=== PATIENT | female | born 1970 | race Caucasian/White ===

== ENCOUNTER → 2017-11-11 11:22 | Outpatient (CLI) | payer BC, SELFPAY ==
[2017-11-11 11:41] LABS: Basophils % 0.7 % (0.1-2.0); Eosinophils # 0.1 K/mm3 (0.0-0.4); Eosinophils % 1.8 % (0.1-12.0); Hematocrit 47.3 % (37.0-47.0); Hemoglobin 15.6 g/dL (12.2-16.2); Lymphocytes # 1.8 K/mm3 (0.7-4.5); Lymphocytes % 31.9 K/mm3 (10-50); Mean Corpuscular Volume 90.8 fl (81-99); Mean Platelet Volume 8.1 fl (7.4-10.4); Monocytes # 0.4 K/mm3 (0.1-1.0); Monocytes % 7.5 % (1.7-9.3); Neutrophils # 3.3 K/mm3 (1.8-7.8); Neutrophils % 58.2 % (37.0-80.0); Platelet Count 248 K/mm3 (142-424); Red Blood Count 5.21 M/mm3 (4.20-5.40); Red Cell Distribution Width 11.9 % (11.5-17.5); White Blood Count 5.7 K/mm3 (4.8-10.8)
[2017-11-11 14:28] LABS: Alanine Aminotransferase 18 U/L (12-78); Albumin Level 3.8 gm/dL (3.4-5.0); Albumin/Globulin Ratio 1.1 (1.1-1.8); Alkaline Phosphatase 76 U/L (46-116); Anion Gap 14.2 mEq/L (5-15); Aspartate Amino Transferase 15 U/L (15-37); Blood Urea Nitrogen 15 mg/dL (7-18); Calcium 9.3 mg/dL (8.5-10.1); Carbon Dioxide 28 mmol/L (21.0-32.0); Chloride 104 mmol/L (98-107); Chol/HDL Ratio 2.1 (1-3.5); Cholesterol 189 mg/dL (140-200); Creatinine,Serum 0.84 mg/dL (0.55-1.02); Estimated Glomerular Filt Rate 72 ml/min (>60); GFR (African American) 87 ML/MIN (>60); Globulin 3.6 gm/dl (1.3-3.2); Glucose 83 mg/dL (74-106); HDL Cholesterol 92 mg/dL (29-89); LDL Cholesterol 87 mg/dL (0-130); Potassium 4.2 mmoL/L (3.5-5.1); Sodium 142 mmol/L (136-145); Thyroid Stimulating Hormone 1.48 uIU/ml (0.358-3.740); Total Protein,Serum 7.4 gm/dL (6.4-8.2); Triglycerides 52 mg/dL (30-200); VLDL Cholesterol 10 mg/dL (0-40)
[2017-11-13 18:48] LABS: FSH 81.3 mIU/mL (.); LH 48.5 mIU/mL (.)
== END ==
PROVIDERS: Visit Provider Nurse Practitioner Obstetrics & Gynecology
DX: Z01.419 Encounter for gynecological examination (general) (routine) without abnormal findings (principal); R53.82 Chronic fatigue, unspecified
CPT/HCPCS: 36415; 80053; 80061; 83001; 83002; 84443; 85025

== ENCOUNTER → 2018-03-20 10:41 | Outpatient (CLI) | payer BC, SELFPAY ==
--- NOTE | 2018-03-20 10:50 | US_ITS ---
US transvaginal HISTORY: Heavy dysfunctional uterine bleeding ITS.REASON: PELVIC MASS ORDERING PHYSICIAN: Luan Connell MD PATIENT AGE: 47 years Comparison: None FINDINGS: Uterus is bulky and retroverted. The uterus measures 8 x 5 x 9 cm with a combined endometrial thickness of 6 mm. Within the fundus of the retroverted uterus there is a 3 x 3 cm area of heterogeneous echogenicity consistent with fibroid. An additional 5 x 4.8 cm area of increased echogenicity is present in the right aspect of the body the uterus consistent with fibroid with some posterior acoustical shadowing. The left ovary has been removed. Right ovary measures 2.5 x 1.8 cm and has an unremarkable appearance. No cul-de-sac fluid evident. IMPRESSION: Bulky uterus is retroverted with fibroid involvement
== END ==
PROVIDERS: Family Provider Family Medicine; PCP Family Medicine; Visit Provider Family Medicine
DX: R19.00 Intra-abdominal and pelvic swelling, mass and lump, unspecified site (principal)
CPT/HCPCS: 76830

== ENCOUNTER → 2018-09-22 10:04 | Outpatient (CLI) | payer BC, SELFPAY ==
[2018-09-22 10:24] LABS: Basophils # 0.1 K/mm3 (0-0.2); Basophils % 0.8 % (0.1-2.0); Eosinophils # 0.1 K/mm3 (0.0-0.4); Eosinophils % 2.2 % (0.1-12.0); Hematocrit 47.2 % (37.0-47.0); Hemoglobin 15.4 g/dL (12.2-16.2); Lymphocytes # 2.5 K/mm3 (0.7-4.5); Lymphocytes % 37.1 % (10-50); Mean Corpuscular HGB Conc 32.6 g/dL (31.8-35.4); Mean Corpuscular Hemoglobin 29.7 pg (27.0-31.2); Mean Corpuscular Volume 91.2 fl (81-99); Mean Platelet Volume 7.8 fl (7.4-10.4); Monocytes # 0.4 K/mm3 (0.1-1.0); Monocytes % 6.6 % (1.7-9.3); Neutrophils # 3.6 K/mm3 (1.8-7.8); Neutrophils % 53.3 % (37.0-80.0); Platelet Count 288 K/mm3 (142-424); Red Blood Count 5.18 M/mm3 (4.20-5.40); Red Cell Distribution Width 12.7 % (11.5-17.5); White Blood Count 6.7 K/mm3 (4.8-10.8)
[2018-09-22 11:47] LABS: HCG Qualitative, Serum Negative (Negative)
[2018-09-22 11:49] LABS: Anion Gap 13.9 mEq/L (5-15); Blood Urea Nitrogen 13 mg/dL (7-18); Calcium 9.2 mg/dL (8.5-10.1); Carbon Dioxide 27 mmol/L (21.0-32.0); Chloride 101 mmol/L (98-107); Creatinine,Serum 0.94 mg/dL (0.55-1.02); Estimated Glomerular Filt Rate 63 ml/min (>60); GFR (African American) 77 ML/MIN (>60); Glucose 83 mg/dL (74-106); Potassium 3.9 mmoL/L (3.5-5.1); Sodium 138 mmol/L (136-145)
== END ==
PROVIDERS: Visit Provider Nurse Practitioner Obstetrics & Gynecology
DX: Z01.818 Encounter for other preprocedural examination (principal); N92.0 Excessive and frequent menstruation with regular cycle
CPT/HCPCS: 36415; 80048; 84703; 85025

== ENCOUNTER 2018-09-25 06:06 | Observation (INO) ==
--- NOTE | 2018-09-25 07:03 | Progress Note ---
[facility] Anesthesia Checklist - Structural Data Admitted From: Home Planned Operative Procedure/s: [facility] Consent for Planned Operative Procedure(s) Verified: Yes - Airway Assessment C-Spine Mobility Assessed: Yes TMJ Mobility Assessed: Yes Dentition: Good Dentition - Neurological Assessment Level of Consciousness: Awake, Alert, Appropriate - Anesthesia Plan Anesthesia Risk discussed: Yes Anesthesia Plan: Verified ASA Class: I [facility] History I have reviewed the patient's past medical history: Yes Medical History: Denies:: Anxiety, Cancer, Depression, Diabetes Mellitus Type 1, Diabetes Mellitus Type 2, Hyperlipidemia, Hypertension, Internal Pacemaker, MRSA, Seizures *Have you ever received a pneumonia vaccine?: No *Have you received a flu vaccine this season?: Yes Other Medical History: Denies: Blood Transfusion Reaction Laterality Cases: Bilateral: Other Other Surgeries: Yes: Dilation and Curettage. No: Pacemaker Amputation: No Fractures: No - *Social History Educational Level: Completed High School Smoking Status: Never smoker Alcohol Intake: never Substance Use Type: denies use *Occupational Status:: employed Housing: house Household Members: spouse *Travel in the last 8 weeks: None - Psychiatric History Expresses thoughts of harming self/others: None Suicide Plan Description: No Plan Pschychiatric History:: Denies:: Anxiety, Depression Family Hx:: No significant family history
--- NOTE | 2018-09-25 09:56 | Progress Note ---
[facility] Anesthesia Record Part I Intake, IV Amount: 2,500 Estimated blood loss (mL): 200 Urine output (mL): 200 Blood Pressure: 118/80 SaO2: 100 Pulse Rate: 87 Respiratory Rate: 12 Temperature: 97 F Patient is:: Awake, Stable Stable to PACU at:: 09:55
--- NOTE | 2018-09-25 09:57 | Progress Note ---
[facility] Anesthesia Record Part II Discharge Time: 10:25 Destination: floor PACU nurse assessment reviewed?: Yes Patient Condition:: Good Anesthesia Complications:: None Swallowing reflex intact?: Yes Cyanosis?: No
--- NOTE | 2018-09-25 10:02 | Operative Note ---
Date of procedure: 09/25/18 Pre-op Diagnosis:: Menorrhagia, pelvic pressure, fibroid uterus Post-op Diagnosis:: Menorrhagia, pelvic pressure, fibroid uterus Procedure performed:: Laparoscopically assisted vaginal hysterectomy, right salpingo-oophorectomy Surgeon:: David Whiteside MD Film Vault Supervisor(s):: Annmarie Deleon SECURITIES SUPERVISOR:: Krzysztof Canas Anesthesia: GETA Estimated blood loss (mL): 200 Clinical Note:: She is a 47-year-old lady who complains of heavy periods as well as a fibroid uterus. She has had a previous left salpingo-oophorectomy. After having discussed the risks and benefits we elected to perform a laparoscopic assisted vaginal hysterectomy and right salpingo-oophorectomy. She is menopausal. Operative findings:: She had a bulky uterus and there were at least 3 fibroids within the uterus. The largest of which was about 6 cm. There is a smaller 1 cm fibroid in the posterior cervix and another fibroid that was approximately 2 cm size within the uterus itself. Operative note:: She was taken to the operating room where general anesthesia was found be adequa te. She was prepped and draped in the normal sterile fashion in the semilithotomy position. A weighted speculum is placed in the vagina. An acorn retractor was then placed within the cervical canal. I changed gloves and injected approximately 10 cc of 0.5% ropivacaine around the umbilicus. I made a small incision within the umbilicus and inserted a Veress needle into the abdominal cavity. The abdominal cavity was then insufflated with carbon dioxide gas to a pressure of 20 mmHg. I then inserted an 11 mm trocar under direct vision. I injected through and through the pubic hairline, made a small incision here and inserted a 5 mm trocar under direct vision. I identified the inferior epigastric artery on the left side, went lateral to this and injected through and through. I made a small incision and inserted an 11 mm trocar under direct vision. This was similarly performed on the patient's right side. The left side had previously been removed so I took down the left round ligament and then the anterior peritoneum to the midline. I then took down the posterior peritoneum to the midline. I was able to identify the uterine arteries on the left side and I placed clips on these. I then used a harmonic scalpel adjacent to the cervix and took these down. I then turned my attention to the right side. I opened up the right round ligament with harmonic scalpel. I then opened up the anterior peritoneum to the midline joining up with the other side. The uterus was extremely bulky and this part of the surgery was tedious. I then took down the right tube and the right utero-ovarian ligament using harmonic scalpel. I elected to leave the ovary and tube in place at this time and then took down the posterior aspect of the broad ligament to the level of the uterosacral ligament on the right side. I was able to identify the uterine arteries on the right side and put hemoclips on these adjacent to the cervix. I then used Harmonic scalpel adjacent to the cervix on coagulation mode and took these down. I freed up the bladder anteriorly using both sharp and blunt dissection with the harmonic scalpel. After once again assuring hemostasis we then turned our attention to the vaginal portion of the procedure. She was placed in the lithotomy position and a weighted speculum is placed in the vagina. The anterior and posterior lip of the cervix were grasped with t enacula. I then injected 20 cc of 1% Xylocaine with epinephrine circumferentially about the cervix. I then circumscribed the cervix with knife. Using Majano scissors I opened up into the posterior cul-de-sac and placed a long weighted speculum here. I then clamped cut and suture-ligated and tagged the left uterosacral ligament. This is followed by the left cardinal ligament which was clamped cut and suture-ligated. I then clamped cut suture ligated and tagged the right uterosacral ligament. This was followed by the right cardinal ligament which was clamped cut and suture-ligated. I then grasped the mucosa and peritoneum anteriorly and using both sharp and blunt dissection dissected into the anterior cul-de-sac. I then placed a Jaun retractor into this defect. I then further clamped cut and suture-ligated on the patient's left and right sides. There was still tissue on either side. I then elected to move the fibroid from within the uterine cavity since it was too large to pass through the vagina. I grasped the cervix on either side at the 3:00 and 9 o'clock position with Bolden tenacula. I then bisected the cervix to the endometrium. Fibroid was then seen and using tenacula I grasped the fibroid and removed it in pieces. This took quite some time. I was careful not to go too deeply with a knife. After removing approximately half the fibroid this way I was able to pass the fundus of the uterus posteriorly through the vagina. There were 2 small pieces of tissue left and these were clamped cut and suture-ligated. Freed up the uterus completely. I then changed to a short weighted speculum and closed the posterior cuff using running 2-0 Vicryl suture in a locked fashion. I then placed a Dolan suture using 0 PDS. I passed the suture through the vagina and peritoneum and then passed it through the left perirectal fascia. I then plicated across the posterior peritoneum and passed through the right perirectal fascia. I then passed the suture through the peritoneum vagina. The suture was left to be tied at the end. I then grasped the anterior peritoneum using 2-0 PDS suture in a pursestring fashion I closed the peritoneum. I then closed the vagina mucosa using running 0 Vicryl suture in a locked fashion from left to right from anterior to posterior. The oDlan suture was then tied. A Grover catheter was placed in the bladder. Clear urine was seen to flow. I then changed gloves and turned my attention to the laparoscopic portion of the surgery. The abdominal cavity was then reinsufflated with carbon dioxide gas and I removed the right ovary and tube by first freeing it up on its infundibulopelvic ligament. I then placed 2 Endoloops on the infundibulopelvic ligament and cut away the tube and ovary. These were then placed within an Endo Catch bag and removed through an 11 mm port. After once again assuring hemostasis and rinsing the pelvis well, I then elected to apply Jeanine to the raw peritoneum on both the left and right sides. Once again hemostasis was assured. The secondary trochars were then removed under direct vision. The sites were hemostatic. The gas was let out of the abdomen and once again hemostasis was assured. The primary trocar and camera were removed together. No bowel was seen to follow. The 11 mm trocar sites were then closed deeply with 2-0 Vicryl suture in a [id number] fashion. The skin was closed with subcuticular 4-0 Monocryl suture. The 5 mm trocar site was closed with subcuticular 4-0 Monocryl suture. Sterile dressings were applied. She tolerated the procedure well and was taken to the recovery room in excellent condition. All sponge instrument and needle counts were correct. The estimated blood loss was approximately 200 cc. Condition: stable Disposition: PACU Specimens:: Uterus, fibroids, right tube and ovary Complications:: None
--- NOTE | 2018-09-25 11:12 | Pharmacy Consult Notes ---
[facility] Pharmacy VTE Monitoring - Patient Demographics Admission date: 09/25/18 Report Date: 09/25/18 Time: 11:12 Allergies/Adverse Reactions: Patient Allergies acetaminophen [From PERCOCET] Allergy (Unknown, Verified 09/25/18 06:23) MIGRANES iodine [IODINE] Allergy (Unknown, Verified 09/25/18 06:23) S-BLISTERING WELTS oxycodone [From PERCOCET] Allergy (Unknown, Verified 09/25/18 06:23) MIGRANES STERI STRIPS Allergy (Severe, Uncoded 06/06/18 15:31) BLISTERS SKIN Height: 1.65 m Weight: 63.503 kg - Prophylaxis VTE Prophylaxis Ordered?: Yes Types of VTE Prophylaxis: IPCS Thigh High Location of Applied Device: Bilateral Lower Extremeties - VTE Diagnosis Confirmed Treatment or plan recommended: Continue Current Treatment
[2018-09-25 16:15] LABS: Hematocrit 37.5 % (37.0-47.0); Hemoglobin 12.9 g/dL (12.2-16.2)
[2018-09-26 06:32] LABS: Basophils % 0.3 % (0.1-2.0); Eosinophils % 0.2 % (0.1-12.0); Hematocrit 33.1 % (37.0-47.0); Lymphocytes # 2.6 K/mm3 (0.7-4.5); Lymphocytes % 30.1 % (10-50); Mean Corpuscular HGB Conc 33.7 g/dL (31.8-35.4); Mean Corpuscular Hemoglobin 29.4 pg (27.0-31.2); Mean Corpuscular Volume 87.2 fl (81-99); Mean Platelet Volume 8.2 fl (7.4-10.4); Monocytes # 0.7 K/mm3 (0.1-1.0); Monocytes % 7.4 % (1.7-9.3); Neutrophils # 5.4 K/mm3 (1.8-7.8); Neutrophils % 61.9 % (37.0-80.0); Platelet Count 202 K/mm3 (142-424); Red Cell Distribution Width 12.7 % (11.5-17.5); White Blood Count 8.8 K/mm3 (4.8-10.8)
[2018-09-26 06:37] LABS: Anion Gap 12.1 mEq/L (5-15); Calcium 8.3 mg/dL (8.5-10.1); Potassium 4.1 mmoL/L (3.5-5.1)
[2018-09-26 07:09] LABS: Hemoglobin 11.3 g/dL (12.2-16.2)
--- NOTE | 2018-09-26 08:14 | Discharge Summary ---
General - General Admission date:: 09/25/18 Discharge date: 09/26/18 HPI HPI: She is a 47-year-old lady who complains of heavy periods as well as pelvic pressure. She had an ultrasound that showed a 4 cm fibroid. As result of that she was offered laparoscopic-assisted vaginal hysterectomy. She had a previous LSO and was offered RSO at the time of her surgery. Hospital Course Hospital Course: On September 25 she underwent a laparoscopic-assisted vaginal hysterectomy and right salpingo-nephrectomy. She had a large 6+ centimeter fibroid within the uterus. There is also 2 other smaller fibroids. She has done well postoperatively and has remained afebrile throughout her hospitalization. She is eating and drinking and ambulating. She is voiding well. She has not had a bowel movement. She denies any shortness of breath, chest pain or calf tenderness. Objective Vital signs: Temp Pulse Resp BP Pulse Ox 98.0 F 49 L 18 110/66 98 09/26/18 04:15 09/26/18 04:15 09/26/18 04:15 09/26/18 04:15 09/26/18 04:15 - *Routine Abdominal Exam Comments: Her incisions are clean and dry. - Detailed Eye Exam Eyelids: Left normal inspection Results Labs on day of discharge: Labs from last 24 hours 09/26/18 09/26/18 09/25/18 06:04 06:04 16:10 WBC 8.8 RBC 3.80 L Hgb 11.3 L D 12.9 Hct 33.1 L 37.5 MCV 87.2 MCH 29.4 MCHC 33.7 RDW 12.7 Plt Count 202 D MPV 8.2 Neut % (Auto) 61.9 Lymph % (Auto) 30.1 Harper % (Auto) 7.4 Eos % (Auto) 0.2 Baso % (Auto) 0.3 Neut # (Auto) 5.4 Lymph # (Auto) 2.6 Harper # (Auto) 0.7 Eos # (Auto) 0.0 Baso # (Auto) 0.0 Sodium 142 Potassium 4.1 Chloride 106 Carbon Dioxide 28 Anion Gap 12.1 BUN 8 Creatinine 0.79 Estimated Creat Clear 86 Estimated GFR 77 Est GFR ( Amer) 94 Glucose 88 Calcium 8.3 L Urine Color Urine Appearance Urine pH Ur Specific Hunter Urine Protein Urine Glucose (UA) Urine Ketones Urine Blood Urine Nitrate Urine Bilirubin Urine Urobilinogen Ur Leukocyte Esterase Urine WBC Ur Squamous Epith Cells Urine Bacteria 09/25/18 09:10 WBC RBC Hgb Hct MCV MCH MCHC RDW Plt Count MPV Neut % (Auto) Lymph % (Auto) Harper % (Auto) Eos % (Auto) Baso % (Auto) Neut # (Auto) Lymph # (Auto) Harper # (Auto) Eos # (Auto) Baso # (Auto) Sodium Potassium Chloride Carbon Dioxide Anion Gap BUN Creatinine Estimated Creat Clear Estimated GFR Est GFR ( Amer) Glucose Calcium Urine Color Yellow Urine Appearance Clear Urine pH 6.0 Ur Specific Hunter 1.015 Urine Protein Negative Urine Glucose (UA) Negative Urine Ketones Negative Urine Blood Trace-i Urine Nitrate Negative Urine Bilirubin Negative Urine Urobilinogen 0.2 Ur Leukocyte Esterase Negative Urine WBC 5-10 Ur Squamous Epith Cells 3-5 Urine Bacteria 1+ DS: Diagnosis - Discharge Diagnosis (1) Menorrhagia Status: Acute (2) Fibroid uterus Status: Acute Discharge Plan - Patient Discharge Instructions ACTIVITY: No heavy lifting DIET: continue same diet - Follow up Plan Disposition: Home, Self-Prison Medications: Home Medications Medication Instructions Recorded Confirmed Type Norethindrone-E.estradiol-Iron [Lo 1 tab PO DAILY 09/22/18 09/25/18 History Loestrin Fe] Hydrocodone/Acetaminophen [Lortab 1 tab PO Q6HP PRN #20 tab 09/26/18 Rx 7.5/325mg tablet] Prescriptions/Medication Reconciliation: New Hydrocodone/Acetaminophen [Lortab 7.5/325mg tablet] 1 tab PO Q6HP PRN #20 tab PRN Reason: Moderate To Severe Pain Discontinued Norethindrone-E.estradiol-Iron [Lo Loestrin Fe] 1 tab PO DAILY
== END 2018-09-26 09:45 | disposition home or self-care (01) ==
LOC: OR 06:06 → INTOOBSV 10:30 → OB 10:37
PROVIDERS: ADMIT Obstetrics & Gynecology; ATTEND Nurse Practitioner Obstetrics & Gynecology
CPT/HCPCS: 36415; 80048; 81001; 85014; 85018; 85025; 96372; 96374; G0378; J0131; J2405

== ENCOUNTER → 2018-12-05 12:21 | Outpatient (CLI) | payer BC, SELFPAY ==
--- NOTE | 2018-12-05 12:24 | XR_ITS ---
XR foot wt bearing RT 3V HISTORY: ITS.REASON: pain ORDERING PHYSICIAN: Donna Miranda DPM PATIENT AGE: 48 years COMPARISON: None FINDINGS: No fracture or dislocation. No lytic or blastic change. There is normal mineralization.. The joint spaces are well-preserved. No significant degenerative/arthritic changes. No erosive changes evident. IMPRESSION: Negative, no acute finding
--- NOTE | 2018-12-05 12:24 | XR_ITS ---
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 There are osteoarthritic changes of the first metatarsophalangeal joint which is increased since the previous exam. No other significant anomalies are evident. 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 Otherwise negative
== END ==
PROVIDERS: PCP Family Medicine; Visit Provider Podiatrist
DX: M79.672 Pain in left foot (principal); M79.671 Pain in right foot
CPT/HCPCS: 73630

== ENCOUNTER 2020-11-14 09:54 | Emergency (ER) | payer BC, SELFPAY ==
[2020-11-14 10:02] VITALS: BP 135/91; PULSE 90; RESP 16; TEMP 36.9; O2SAT 98; BMI 23.1
--- NOTE | 2020-11-14 10:17 | HMH.EDUTC ---
[facility] [place] Clinical Impression: Left lower lobe pneumonia Qualifiers: Pneumonia type: due to unspecified organism Qualified Code(s): J18.9 - Pneumonia, unspecified organism Disposition: Home, Self-Care Condition on Discharge: Good Instructions: DI for Pneumonia -- Adult Additional Instructions: COVID19 test is pending Prescriptions: levoFLOXacin [Levaquin 500mg tab] 500 mg PO DAILY 10 Days #10 tab Transmission Status: Pending to [id number] predniSONE [Prednisone 20mg Tab] 20 mg PO BID 5 Days #10 tab Transmission Status: Pending to [id number] Albuterol Sulfate [Proventil-HFA 90mcg/puff Inh] 2 puffs IH QIDP PRN 30 Days #1 inh PRN Reason: Wheezing Transmission Status: Pending to [facility] Referrals: Franciose Lowe MD [Primary Care Provider] - Forms: Work/School Release Time of Disposition: 10:52 Medical Decision Making - [place] Inquiry Pt receiving controlled substance: No Vital Signs: 11/14/20 10:02 Temperature 98.4 F Temperature Source Oral Pulse Rate [Right] 90 Respiratory Rate 16 Blood Pressure [Right Arm] 135/91 H Blood Pressure Mean [Right Arm] 105 Blood Pressure Source [Right Arm] Automatic Cuff Blood Pressure Position [Right Arm] Sitting 02 Sat by Pulse Oximetry 98 Oxygen Delivery Method Room Air Orders (Tests/Meds): ORDERS Category Date Time Status Covid-19 Nasal PCR ([facility]) Routine Lab 11/14/20 10:30 Received - Radiology Data #1 Image(s): Chest Image Reviewed: Yes I have reviewed radiologist's interpretation PROCEDURE: XR CHEST 2V CLINICAL HISTORY: cough COMPARISON: No exams were available for comparison FINDINGS: The cardiomediastinal silhouette and pulmonary vascularity are within normal limits. There is calcified granuloma in the right middle lobe. Atelectatic changes are present in the left lung base. The remaining lungs are clear. No acute bony abnormalities. IMPRESSION: Left lower lobe atelectasis [facility] [place] - General Stated complaint: headache, fever Time Seen by Provider: 11/14/20 10:17 Mode of Arrival: Ambulatory Source of Information: Patient Limitations: No Limitations Description of Symptoms (Recalled from Triage Doc. by RN): headache and cough HEENT Symptoms (Recalled from RN notes): Yes (headache, cough) Resp Symptoms (Recalled from RN notes): No Skin Symptoms (Recalled from RN notes): No MS Symptoms (Recalled from RN notes): No Functional Status (Recalled from RN notes): na - History of Present Illness Provider Complaint: Patient has had headache, cough, fever X [address] [facility] earlier this week - flu and strep were negative. Treated for sinusitis with Amoxicillin. She is still not feeling well. Still has fever. Stomach is upset but no vomiting or diarrhea. Hurts to take a deep breath. Cough is productive. Taste is off but hasn't lost taste or smell. Onset (ago): week(s) (1) Location: chest Consistency: constant Relieving factors: none Exacerbating factors: none Associated symptoms: cough, fever/chills, headaches, loss of appetite, nausea/vomiting Treatments prior to arrival: NSAID, other (Amoxil) - Related Data Previous Rx's Medication Instructions Recorded estradiol 2 mg tablet See Rx Instructions .ROUTE 10/27/20 .COMPLEX #90 tab amoxicillin 500 mg capsule 500 mg PO Q12H 10 Days #20 cap 11/11/20 Albuterol Sulfate [Proventil-HFA 2 puffs IH QIDP PRN 30 Days #1 inh 11/14/20 90mcg/puff Inh] levoFLOXacin [Levaquin 500mg 500 mg PO DAILY 10 Days #10 tab 11/14/20 tab] predniSONE [Prednisone 20mg 20 mg PO BID 5 Days #10 tab 11/14/20 Tab] Allergies Allergy/AdvReac Type Severity Reaction Status Date / Time sulfamethoxazole Allergy Mild Verified 11/11/20 11:26 [From Bactrim] trimethoprim [From Bactrim] Allergy Mild Verified 11/11/20 11:26 acetaminophen [From PERCOCET] Allergy Unknown MIGRANES Verified 11/11/20 11:26 io
--- NOTE | 2020-11-14 10:23 | XR_ITS ---
PROCEDURE: XR CHEST 2V CLINICAL HISTORY: cough COMPARISON: No exams were available for comparison FINDINGS: The cardiomediastinal silhouette and pulmonary vascularity are within normal limits. There is calcified granuloma in the right middle lobe. Atelectatic changes are present in the left lung base. The remaining lungs are clear. No acute bony abnormalities. IMPRESSION: Left lower lobe atelectasis Dictated by: Ian Whiting MD 11/14/2020 10:42 Ian Whiting MD in [place] 11/14/2020 10:43
[2020-11-14 11:02] VITALS: BP 132/80; PULSE 87; RESP 16; TEMP 36.8; O2SAT 98
== END 2020-11-14 11:04 | disposition home or self-care (01) ==
PROVIDERS: Emergency Provider Physician Assistant; PCP Family Medicine
DX: U07.1 COVID-19 (principal); J18.9 Pneumonia, unspecified organism
CPT/HCPCS: 71046; 99202; G0463; U0003

== ENCOUNTER → 2020-11-24 11:23 | Outpatient (CLI) | payer BC, SELFPAY ==
--- NOTE | 2020-11-24 11:36 | XR_ITS ---
PROCEDURE: XR CHEST 2V CLINICAL HISTORY: PNEUMONIA DUE TO CORONAVIRUS DISEASE 2018 COMPARISON: CR XR CHEST 2V from 11/14/2020 FINDINGS: The cardiomediastinal silhouette and pulmonary vascularity are within normal limits. Patchy areas of ground-glass infiltrate are noted in both lower lobes consistent with mild bilateral lower lobe pneumonia. These findings have progressed compared to the previous exam. There may be some patchy infiltrate in the right and left midlung zones as well. No obvious effusions No acute bony abnormalities. IMPRESSION: Patchy ground-glass attenuation bilaterally consistent with Covid19 pneumonia Dictated by: Ian Whiting MD 11/24/2020 12:05 Ian Whiting MD in [place] 11/24/2020 12:05
[2020-11-24 11:38] LABS: Basophils % 0.5 % (0.1-2.0); Hematocrit 45.5 % (37.0-47.0); Hemoglobin 15.1 g/dL (12.2-16.2); Lymphocytes % 28.7 % (10-50); Mean Corpuscular HGB Conc 33.2 g/dL (31.8-35.4); Mean Corpuscular Hemoglobin 28.2 pg (27.0-31.2); Monocytes # 0.6 K/mm3 (0.1-1.0); Monocytes % 8.8 % (1.7-9.3); Neutrophils # 4.3 K/mm3 (1.8-7.8); Neutrophils % 62.1 % (37.0-80.0); Platelet Count 401 K/mm3 (142-424); Red Blood Count 5.36 M/mm3 (4.20-5.40); Red Cell Distribution Width 12.3 % (11.5-17.5)
[2020-11-24 12:59] LABS: Alanine Aminotransferase 14 U/L (12-78); Albumin Level 3.9 g/dl (3.5-5.0); Albumin/Globulin Ratio 1.3 (1.1-1.8); Alkaline Phosphatase 79 U/L (38-126); Anion Gap 10.1 mEq/L (5-15); Aspartate Amino Transferase 23 U/L (14-36); Bilirubin,Total 0.8 mg/dl (0.2-1.3); Blood Urea Nitrogen 11 mg/dl (7-17); Calcium 9.1 mg/dl (8.4-10.2); Carbon Dioxide 28 mmol/L (22.0-30.0); Chloride 104 mmol/L (98-107); Estimated Glomerular Filt Rate 75 ml/min (>60); GFR (African American) 91 ML/MIN (>60); Glucose 62 mg/dl (74-100); Potassium 4.1 mmoL/L (3.5-5.1); Sodium 138 mmol/L (136-145); Total Protein,Serum 6.9 g/dl (6.3-8.2)
== END ==
LOC: LAB 11:23 → RAD 11:33
PROVIDERS: PCP Family Medicine; Visit Provider Physician Assistant
DX: J12.82 Pneumonia due to coronavirus disease 2019 (principal)
CPT/HCPCS: 36415; 71046; 80053; 85025

== ENCOUNTER → 2020-12-03 16:37 | Outpatient (CLI) | payer BC, SELFPAY | PROVIDERS: Visit Provider Nurse Practitioner Obstetrics & Gynecology | DX: U07.1 COVID-19 (principal) | CPT/HCPCS: U0003 ==

== ENCOUNTER → 2020-12-04 14:27 | Outpatient (CLI) | payer BC, SELFPAY ==
--- NOTE | 2020-12-04 14:38 | XR_ITS ---
PROCEDURE: XR CHEST PORTABLE CLINICAL HISTORY: PNUEMONIA DUE TO COVID COMPARISON: CR XR CHEST 2V from 11/14/2020 CR XR CHEST 2V from 11/24/2020 FINDINGS: The cardiomediastinal silhouette and pulmonary vascularity are within normal limits. Previously noted ill distinct bilateral mid and lower zone infiltrates demonstrate improvement. No lobar consolidation, pleural effusions or pneumothorax. Calcified granuloma in the right mid zone. No acute bony abnormalities. IMPRESSION: Bilateral mid and lower zone infiltrates demonstrate marginal improvement compared to the prior study. No focal consolidation. Dictated by: America Oseguera 12/04/2020 15:12 America Oseguera in [place] 12/04/2020 15:12
== END ==
PROVIDERS: PCP Physician Assistant; Visit Provider Physician Assistant
DX: J12.82 Pneumonia due to coronavirus disease 2019 (principal)
CPT/HCPCS: 71045

== ENCOUNTER 2022-01-08 11:04 | Emergency (ER) | payer BC, SELFPAY ==
--- NOTE | 2022-01-08 11:16 | HMH.EDUTC ---
[facility] Disposition Clinical Impression: Otitis media Qualifiers: Otitis media type: suppurative Chronicity: acute Laterality: bilateral Recurrence: non-recurrent Spontaneous tympanic membrane rupture: without spontaneous rupture Qualified Code(s): H66.003 - Acute suppurative otitis media without spontaneous rupture of ear drum, bilateral Pharyngitis Qualifiers: Pharyngitis/tonsillitis etiology: unspecified etiology Qualified Code(s): J02.9 - Acute pharyngitis, unspecified Disposition: Home, Self-Care Condition on Discharge: Good Instructions: Middle Ear Infection Additional Instructions: Drink plenty of fluids. Take tylenol or ibuprofen for pain or fever. Take the medications as directed. Follow up with your regular doctor. GO TO THE ER FOR ANY WORSENING SYMPTOMS Quarantine until you know the results of your covid-19 test. Notify your school or workplace of your results and follow their instructions regarding return to work/school. Prescriptions: Ondansetron [Zofran 4mg ODT] 4 mg PO Q8HP PRN #20 tab PRN Reason: Nausea [facility] Amoxicillin [Amoxicillin 500mg Tab] 500 mg PO TID 10 Days #30 tab Transmission Status: [facility] Benzonatate [Benzonatate 100mg cap] 100 mg PO TIDP PRN #30 cap PRN Reason: Cough Transmission Status: [facility] methylPREDNISolone [Medrol] 4 mg PO DIRECTED 6 Days #21 packet Transmission Status: [facility] Referrals: Ling Soria APRN [Primary Care Provider] - Forms: Work/School Release Time of Disposition: 11:51 Medical Decision Making - Medical Records Medical records reviewed: No: I reviewed the patient's medical records. - [place] Inquiry Pt receiving controlled substance: No Vital Signs: 01/08/22 11:24 01/08/22 11:56 Temperature 98.2 F 98.2 F Temperature Source Oral Pulse Rate 75 Pulse Rate [Left Radial] 75 Respiratory Rate 18 18 Blood Pressure 125/78 Blood Pressure [Right Arm] 125/78 Blood Pressure Mean [Right Arm] 93 02 Sat by Pulse Oximetry 96 - Lab Data Lab results reviewed: Yes: I reviewed the patient's lab results. Lab Results 01/08/22 11:22: Group A Strep Rapid Negative 01/08/22 11:47: Chlamy pneumoniae PCR Not detected, Adenovirus (PCR) Not detected, B. pertussis DNA (PCR) Not detected, Coronavirus OC43 (PCR) Not detected, Coronavirus HKU1 (PCR) Not detected, Coronavirus 229E (PCR) Not detected, SARS-CoV-2 (PCR) Detected A, Coronavirus NL63 (PCR) Not detected, Human Metapneumovir PCR Not detected, Influenza A (H1) PCR Not detected, Influ A (H1N1/09) PCR Not detected, Influenza A (H3) PCR Not detected, Influenza Type A (PCR) Not detected, Influenza Type B (PCR) Not detected, M. pneumoniae (PCR) Not detected, Parainfluenza 1 (PCR) Not detected, Parainfluenza 2 (PCR) Not detected, Parainfluenza 3 (PCR) Not detected, Parainfluenza 4 (PCR) Not detected, RSV (PCR) Not detected, Entero/Rhino (PCR) Not detected [facility] HPI - General Stated complaint: sore throat, bilateral ear pain Time Seen by Provider: 01/08/22 11:16 - History of Present Illness Provider Complaint: She states that for the past 2 days she has had a sore throat, bilateral ear pain, chills, fatigue and she has felt bad. - Related Data Home Medications Medication Instructions Recorded Confirmed amino acid-rice protein-mv with each PO BID g 06/29/21 min 24 gram-240 kcal/65 gram oral pwdr Previous Rx's Medication Instructions Recorded estradiol 2 mg tablet See Rx Instructions .ROUTE 10/19/21 .COMPLEX #90 tab peg 3350-electrolytes 236 240 ml PO Q10M #4000 ml 12/01/21 gram-22.74 gram-6.74 gram-5.86 gram solution Amoxicillin [Amoxicillin 500mg Tab] 500 mg PO TID 10 Days #30 tab 01/08/22 Benzonatate [Benzonatate 100mg 100 mg PO TIDP PRN #30 cap 01/08/22 cap] Ondansetron [Zofran 4mg ODT] 4 mg PO Q8HP PRN #20
[2022-01-08 11:24] VITALS: BP 125/78; PULSE 75; RESP 18; TEMP 36.8; O2SAT 96; BMI 25.0
[2022-01-08 11:33] LABS: Strep Scrn Group A (Rapid) Negative (Negative)
[2022-01-08 11:56] VITALS: BP 125/78; PULSE 75; RESP 18; TEMP 36.8
[2022-01-08 12:06] LABS: Adenovirus,PCR Not Detected (NotDetected); Bordetella Pertussis Not Detected (NotDetected); Chlamydophila Pneumoniae, PCR Not Detected (NotDetected); Coronavirus 229E Not Detected (NotDetected); Coronavirus NL63 Not Detected (NotDetected); Coronavirus OC43 Not Detected (NotDetected); Coronovirus HKU1,PCR Not Detected (NotDetected); Human Metapneumovirus Not Detected (NotDetected); Influenza A, PCR Not Detected (NotDetected); Influenza AH1, 2009 Not Detected (NotDetected); Influenza AH1, PCR Not Detected (NotDetected); Influenza AH3,PCR Not Detected (NotDetected); Influenza B, PCR Not Detected (NotDetected); Mycoplasma Pneumoniae, PCR Not Detected (NotDetected); Parainfluenza 1, PCR Not Detected (NotDetected); Parainfluenza 2, PCR Not Detected (NotDetected); Parainfluenza 3, PCR Not Detected (NotDetected); Parainfluenza 4, PCR Not Detected (NotDetected); Respiratory Syncytial Virus Not Detected (NotDetected); Rhinovirus/Enterovirus Not Detected (NotDetected)
[2022-01-08 17:01] LABS: Coronavirus 19, PCR Detected (NotDetected)
== END 2022-01-08 12:06 | disposition home or self-care (01) ==
PROVIDERS: Emergency Provider Nurse Practitioner Family; PCP Nurse Practitioner Family
DX: U07.1 COVID-19 (principal); H66.003 Acute suppurative otitis media without spontaneous rupture of ear drum, bilateral; H02.9 Unspecified disorder of eyelid; R53.82 Chronic fatigue, unspecified; Z79.52 Long term (current) use of systemic steroids; Z88.2 Allergy status to sulfonamides; Z88.6 Allergy status to analgesic agent; Z88.8 Allergy status to other drugs, medicaments and biological substances; Z85.89 Personal history of malignant neoplasm of other organs and systems; Z82.49 Family history of ischemic heart disease and other diseases of the circulatory system; Z83.3 Family history of diabetes mellitus
CPT/HCPCS: 87430; 87581; 87632; 87798; 99213; C9803; G0463; U0003; U0005

== ENCOUNTER 2022-01-13 12:46 | Emergency (ER) | payer BC, SELFPAY ==
[2022-01-13 13:01] VITALS: BP 138/87; PULSE 93; RESP 18; TEMP 36.9; O2SAT 96; BMI 25.0
--- NOTE | 2022-01-13 13:02 | HMH.EDUTC ---
[facility] Disposition Clinical Impression: COVID-19 Disposition: Home, Self-Care Condition on Discharge: Good Instructions: How to Instill Eye Drops, DI for Conjunctivitis, DI for COVID-19 (Suspected or Confirmed ), Preventing the Spread of Coronavirus Discharge Instructions Additional Instructions: Use the eye drops as directed. Follow up with your regular doctor. Follow up with an eye doctor. Drink plenty of fluids. Take tylenol or ibuprofen for pain or fever. Take the medications as directed. Stop the amoxicillin and start the azithromycin. Continue the other medications that you are on. Follow up with your regular doctor. GO TO THE ER FOR ANY WORSENING SYMPTOMS Prescriptions: Moxifloxacin HCl [Vigamox] 1 drp OP TID 7 Days #3 ml Transmission Status: Received by [facility] Azithromycin [Z-Gil 250mg Tab*] 250 mg PO UD DOSE PK #6 tab Transmission Status: Received by [facility] Referrals: Francoise Lowe MD [Primary Care Provider] - Time of Disposition: 13:37 Medical Decision Making - Medical Records Medical records reviewed: No: I reviewed the patient's medical records. - [place] Inquiry Pt receiving controlled substance: No Vital Signs: 01/13/22 13:01 01/13/22 13:38 Temperature 98.5 F 98.5 F Temperature Source Oral Pulse Rate 93 H Pulse Rate [Left Radial] 93 H Respiratory Rate 18 18 Blood Pressure 138/87 Blood Pressure [Right Arm] 138/87 Blood Pressure Mean [Right Arm] 104 02 Sat by Pulse Oximetry 96 - Lab Data Lab results reviewed: Yes: I reviewed the patient's lab results. [facility] HPI - General Stated complaint: headache, cough, red eyes Time Seen by Provider: 01/13/22 13:02 - History of Present Illness Provider Complaint: She is back today with continued sinus congestion, bilateral eye matting, and feeling bad. She was seen here 3 days ago and she tested positive for covid-19. She denies any shortness of breath and chest congestion. She states that her chest congestion has seemed to get some better. She denies any fever for the past 24 hours. - Related Data Home Medications Medication Instructions Recorded Confirmed amino acid-rice protein-mv with each PO BID g 06/29/21 min 24 gram-240 kcal/65 gram oral pwdr Previous Rx's Medication Instructions Recorded estradiol 2 mg tablet See Rx Instructions .ROUTE 10/19/21 .COMPLEX #90 tab peg 3350-electrolytes 236 240 ml PO Q10M #4000 ml 12/01/21 gram-22.74 gram-6.74 gram-5.86 gram solution Amoxicillin [Amoxicillin 500mg Tab] 500 mg PO TID 10 Days #30 tab 01/08/22 Benzonatate [Benzonatate 100mg 100 mg PO TIDP PRN #30 cap 01/08/22 cap] Ondansetron [Zofran 4mg ODT] 4 mg PO Q8HP PRN #20 tab 01/08/22 methylPREDNISolone [Medrol] 4 mg PO DIRECTED 6 Days #21 01/08/22 packet Azithromycin [Z-Gil 250mg Tab*] 250 mg PO UD DOSE PK #6 tab 01/13/22 Moxifloxacin HCl [Vigamox] 1 drp OP TID 7 Days #3 ml 01/13/22 Allergies Allergy/AdvReac Type Severity Reaction Status Date / Time sulfamethoxazole Allergy Mild Verified 01/13/22 13:04 [From Bactrim] trimethoprim [From Bactrim] Allergy Mild Verified 01/13/22 13:04 acetaminophen [From PERCOCET] Allergy Unknown MIGRANES Verified 01/13/22 13:04 iodine [IODINE] Allergy Unknown S-BLISTERING Verified 01/13/22 13:04 WELTS oxycodone [From PERCOCET] Allergy Unknown MIGRANES Verified 01/13/22 13:04 STERI STRIPS Allergy Severe BLISTERS Uncoded 12/03/20 15:52 SKIN H History - Hepatitis A Screen Attestation statement:: This patient has been screened for Hepatitis A risk factors. I have reviewed the patient's past medical history: Yes Medical History: Reports:: Cancer Denies:: Anxiety, Depression, Diabetes Mellitus Type 1, Diabetes Mellitus Type 2, Hyperlipidemia, Hypertension, Internal Pacemaker, MRSA, Seizures Other Medical History: Denies: Blood Transfusion Reaction Laterality Cases: Bilateral:
[2022-01-13 13:38] VITALS: BP 138/87; PULSE 93; RESP 18; TEMP 36.9
== END 2022-01-13 13:42 | disposition home or self-care (01) ==
PROVIDERS: Emergency Provider Nurse Practitioner Family; PCP Family Medicine
DX: U07.1 COVID-19 (principal); R51.9 Headache, unspecified; R05.9 Cough, unspecified
CPT/HCPCS: 99212; G0463

== ENCOUNTER → 2022-03-08 08:49 | Outpatient (CLI) | payer BC, SELFPAY | PROVIDERS: PCP Family Medicine; Visit Provider Surgery | DX: Z01.812 Encounter for preprocedural laboratory examination (principal); Z20.822 Contact with and (suspected) exposure to COVID-19; Z12.11 Encounter for screening for malignant neoplasm of colon | CPT/HCPCS: C9803; U0003; U0005 ==

== ENCOUNTER 2022-03-09 08:37 | Day surgery (SDC) | payer BC, SELFPAY ==
[2022-03-08 09:39] VITALS: BMI 24.1
[2022-03-09 08:53] VITALS: BP 171/72; PULSE 62; RESP 20; TEMP 37.1; O2SAT 98
--- NOTE | 2022-03-09 09:09 | P.PN_ITS ---
[facility] Anesthesia Checklist - Patient Identification Patient Identification: Arm Band - Structural Data Admitted From: Home Planned Operative Procedure/s: colonoscopy Consent for Planned Operative Procedure(s) Verified: Yes Verified Documents: Surgical Consent, History and Physical - NPO Status Verified Time NPO: 00:00 - Additional verifications Anesthesia Reactions: No Hx Blood Transfusions: No Blood Transfusion Reaction: No - Airway Assessment C-Spine Mobility Assessed: Yes (mp2) TMJ Mobility Assessed: Yes Dentition: Good Dentition - Neurological Assessment Level of Consciousness: Awake, Alert - Anesthesia Plan Anesthesia Risk discussed: Yes Anesthesia Plan: Verified ASA Class: I Anesthesia Type: MAC [facility] History I have reviewed the patient's past medical history: Yes Medical History: Denies:: Anxiety, Cancer, Depression, Diabetes Mellitus Type 1, Diabetes Mellitus Type 2, Hyperlipidemia, Hypertension, Internal Pacemaker, MRSA, Seizures *Have you ever received a pneumonia vaccine?: No *Have you received a flu vaccine this season?: No Other Medical History: Denies: Blood Transfusion Reaction Anesthesia experience/problems:: nac Laterality Cases: Bilateral: Other Other Surgeries: Yes: Appendectomy, Cancer Surgery (Cancerous spot removed from her nose ), Cholecystectomy, Dilation and Curettage, Hysterectomy-Total, Skin Cancer Excision, Tubal Ligation. No: Pacemaker Amputation: No Fractures: No - *Social History Last grade of school completed: Some college Smoking Status: Never smoker Alcohol Intake: current Alcohol Intake Frequency:: holidays/special occasions only Substance Use Type: denies use *Occupational Status:: employed Housing: house Household Members: spouse *Travel in the last 8 weeks: None - Psychiatric History Pschychiatric History:: Denies:: Anxiety, Depression Family Hx:: Diabetes, Hypertension, Stroke, Other
[2022-03-09 09:11] VITALS: O2SAT 97
--- NOTE | 2022-03-09 09:41 | HMH.SCOPE ---
- Procedure: Date: 03/09/22 Patient Date of :: 1970 Procedure Performed:: Colonoscopy with polypectomy by means other than snare Indications:: Screening Performing Provider:: Weston Flood MD Referring Provider:: . Sedation:: Monitored anesthesia care Procedure:: After informed consent was obtained the patient was taken to the endoscopy suite. Sedation ensued after the patient was transferred to the left lateral decubitus position. Pulse, blood pressure, and oxygen saturation were monitored throughout the procedure. Digital rectal exam revealed no significant abnormality. The colonoscope was placed in position. The entire colon was evaluated. The colonoscope was carefully removed and the patient was transferred to recovery in stable condition. Please see findings and specimens below for detail. Findings:: Bowel preparation relatively fair Scattered sigmoid diverticulosis Fairly significant lack of relaxation Proximal right colon polyp Specimens:: Proximal right colon polyp (cold biopsy forceps) Recommendations:: Timing of repeat colonoscopy is pending pathology but will likely be around 3-5 years. Complications:: No immediate Estimated blood obtained (mL): 1
[2022-03-09 09:42] VITALS: BP 104/56; PULSE 60; RESP 16; TEMP 36.3; O2SAT 100
[2022-03-09 09:52] VITALS: BP 109/76; PULSE 57; RESP 16; O2SAT 99
[2022-03-09 10:02] VITALS: BP 103/69; PULSE 57; RESP 16; O2SAT 100
[2022-03-09 10:12] VITALS: BP 106/62; PULSE 59; RESP 16; TEMP 36.2; O2SAT 100
== END 2022-03-09 10:12 | disposition home or self-care (01) ==
LOC: OUTP 08:38
PROVIDERS: PCP Nurse Practitioner Family; Visit Provider Surgery
PROC: 0DJD8ZZ Inspection of Lower Intestinal Tract, Via Natural or Artificial Opening Endoscopic (ICD-10-PCS; CPT 45380; principal; 2022-03-09 09:30)
DX: Z12.11 Encounter for screening for malignant neoplasm of colon (principal); K63.5 Polyp of colon; Z79.899 Other long term (current) drug therapy
CPT/HCPCS: 45380; J2704

== ENCOUNTER → 2022-06-24 09:46 | Outpatient (CLI) | payer BC, SELFPAY ==
--- NOTE | 2022-06-24 09:50 | MM_ITS ---
PROCEDURE INFORMATION: Exam: MG Bilateral Screening 3D Mammography Exam date and time: 06/24/2022 9:41 AM Age: 51 years old Clinical indication: Screening. Her maternal cousin had breast cancer. TECHNIQUE: Imaging protocol: Bilateral Screening tomosynthesis and 2D mammography including computer-aided detection (CAD) when performed. COMPARISON: 1. MG DMSB DIG MAMM-SCREEN AMANDA 03/21/2015 8:38 AM 2. MG DMSB DIG MAMM-SCREEN AMANDA 11/21/2013 3:55 PM 3. MG DMSB DIGITAL MAMM-SCREEN BILATERAL 08/22/2012 9:03 AM 4. MG DMSB DIGITAL MAMM-SCREEN BILATERAL 07/15/2011 9:18 AM FINDINGS: MAMMOGRAPHY: Breast composition: The breasts are heterogeneously dense, which may obscure small masses. Mass: None. Architectural distortion: None. Calcifications: No suspicious calcifications. Asymmetric density: None. Skin thickening: None. Axillary adenopathy: None. IMPRESSION: No mammographic evidence of malignancy. Annual screening is recommended unless otherwise clinically indicated. ASSESSMENT: BI-RADS Category 1: Negative
== END ==
PROVIDERS: PCP Nurse Practitioner Family; Visit Provider Nurse Practitioner Obstetrics & Gynecology
DX: Z12.31 Encounter for screening mammogram for malignant neoplasm of breast (principal)
CPT/HCPCS: 77063; 77067

== ENCOUNTER 2022-07-08 10:52 | Emergency (ER) | payer BC, SELFPAY ==
[2022-07-08 11:35] VITALS: BP 103/67; PULSE 82; RESP 17; TEMP 36.7; O2SAT 96; BMI 27.1
[2022-07-08 11:44] LABS: Adenovirus,PCR Not Detected (NotDetected); Bordetella Pertussis Not Detected (NotDetected); Chlamydophila Pneumoniae, PCR Not Detected (NotDetected); Coronavirus 19, PCR Not Detected (NotDetected); Coronavirus 229E Not Detected (NotDetected); Coronavirus NL63 Not Detected (NotDetected); Coronavirus OC43 Not Detected (NotDetected); Coronovirus HKU1,PCR Not Detected (NotDetected); Human Metapneumovirus Not Detected (NotDetected); Influenza A, PCR Not Detected (NotDetected); Influenza AH1, 2009 Not Detected (NotDetected); Influenza AH1, PCR Not Detected (NotDetected); Influenza AH3,PCR Not Detected (NotDetected); Influenza B, PCR Not Detected (NotDetected); Mycoplasma Pneumoniae, PCR Not Detected (NotDetected); Parainfluenza 1, PCR Not Detected (NotDetected); Parainfluenza 2, PCR Not Detected (NotDetected); Parainfluenza 3, PCR Not Detected (NotDetected); Parainfluenza 4, PCR Not Detected (NotDetected); Rhinovirus/Enterovirus Not Detected (NotDetected)
--- NOTE | 2022-07-08 11:51 | EXP.UTC ---
Discharge Plan Disposition Patient Disposition: Home, Self-Care Condition: Good Prescriptions Prescriptions: New benzonatate [benzonatate] 100 mg capsule 100 mg PO TIDP PRN (Reason: Cough) Qty: 30 0RF methylprednisolone 4 mg Tablets,Dose Pack 4 mg PO DIRECTED Qty: 21 0RF cefdinir 300 mg capsule 300 mg PO BID Qty: 20 0RF No Action estradiol 2 MG tablet 2 mg PO DAILY Rx Instructions: TAKE 1 TABLET BY MOUTH EVERY DAY Referrals Follow up/Referrals: Celina Jordan APRN [Primary Care Provider] - See instructions Activity Restrictions/Add. Instructions Additional Instructions/Restrictions: Drink plenty of fluids. Take tylenol or ibuprofen for pain or fever. Take the medications as directed. Follow up with your regular doctor. GO TO THE ER FOR ANY WORSENING SYMPTOMS Don't start the oral steroids until tomorrow, since you had the shot here today. Clinical Impressions Clinical Impression: Acute bronchitis, Acute viral syndrome Stand Alone Forms Stand Alone Forms: Work/School Release Instructions Patient Instructions: DI for Respiratory Syncytial Virus -- Adults, DI for Acute Bronchitis Discharge ED Provider: Eulogio Wade [facility] General Stated complaint: RSV Exposure, chest congestion, SOA Mode of Arrival: Ambulatory Source of Information: Patient Limitations: No Limitations Time Seen by Provider: 07/08/22 11:51 Description of Symptoms (Recalled from Triage Doc. by RN): PATIENT C/O COUGH, RUNNY NOSE, SOA AND HURTS TO BREATH X 1 WEEK. RECENTLY EXPOSED TO RSV HEENT Symptoms (Recalled from RN notes): Yes Resp Symptoms (Recalled from RN notes): Yes Skin Symptoms (Recalled from RN notes): No MS Symptoms (Recalled from RN notes): No Functional Status (Recalled from RN notes): WNL History of Present Illness Provider Complaint: she states that for the past 2 days she has had cough, chest congestion, low grade fever and malaise. She has been exposed to rsv in her home. Related Data Home Medications Medication Instructions Recorded Confirmed estradiol 2 mg tablet 2 mg PO DAILY HORMONE 03/05/22 07/08/22 Previous Rx's Medication Instructions Recorded benzonatate 100 mg capsule 100 mg PO TIDP PRN Cough #30 caps 07/08/22 cefdinir 300 mg capsule 300 mg PO BID #20 caps 07/08/22 methylprednisolone 4 mg tablets in 4 mg PO DIRECTED #21 tabs 07/08/22 a dose pack Allergies Allergy/AdvReac Type Severity Reaction Status Date / Time sulfamethoxazole Allergy Mild Verified 03/17/22 14:15 [From Bactrim] trimethoprim [From Bactrim] Allergy Mild Verified 03/17/22 14:15 acetaminophen [From PERCOCET] Allergy Unknown MIGRANES Verified 03/17/22 14:15 iodine [IODINE] Allergy Unknown S-BLISTERING Verified 03/17/22 14:15 WELTS oxycodone [From PERCOCET] Allergy Unknown MIGRANES Verified 03/17/22 14:15 STERI STRIPS Allergy Severe BLISTERS Uncoded 03/17/22 14:15 SKIN Worker's Comp Is this a Worker's Comp case?: No [facility] Disclaimer: The information contained in this section may have been updated after the patient was seen, as this information can be updated by other users. Medical History Skin cancer Tubular adenoma of colon Surgical History History of appendectomy History of cholecystectomy History of colonoscopy History of hysterectomy History of tubal ligation Social History Smoking Status: Never smoker alcohol intake: current substance use type: denies use current occupational status: employed Travel in the last 8 weeks: None household members: spouse housing: house current occupation: 3M current occupational exposures/hazards: Yes caffeine: Yes ROS Obtained: Yes All systems reviewed & no additional complaints except as documented Constitutional Constitutio
[2022-07-08 12:47] VITALS: BP 103/67; PULSE 82; RESP 17; TEMP 36.7; O2SAT 96
[2022-07-08 20:28] LABS: Respiratory Syncytial Virus Detected (NotDetected)
== END 2022-07-08 12:50 | disposition home or self-care (01) ==
PROVIDERS: Emergency Provider Nurse Practitioner Family; PCP Nurse Practitioner Family
DX: J20.5 Acute bronchitis due to respiratory syncytial virus (principal)
CPT/HCPCS: 87581; 87632; 87798; 99212; C9803; G0463; J0696; U0003; U0005

== ENCOUNTER 2022-08-25 13:13 | Emergency (ER) | payer BC, SELFPAY ==
[2022-08-25 13:15] VITALS: BP 147/92; PULSE 70; RESP 20; TEMP 36.7; O2SAT 96; BMI 26.2
--- NOTE | 2022-08-25 13:15 | EXP.UTC ---
Discharge Plan Disposition Patient Disposition: Home, Self-Care Condition: Good Prescriptions Prescriptions: New ofloxacin 0.3 % drops See Rx Instructions .ROUTE .COMPLEX Qty: 5 0RF Rx Instructions: put 2 drps into affected eye every 2 h x 2 days, then 1 drp 4 times/day days 3-7 No Action estradiol 2 MG tablet 2 mg PO DAILY Rx Instructions: TAKE 1 TABLET BY MOUTH EVERY DAY Referrals Follow up/Referrals: Francoise Lowe MD [Primary Care Provider] - See instructions Activity Restrictions/Add. Instructions Additional Instructions/Restrictions: Use the eye drops as directed. Strict hand washing in the house hold, because conjunctivitis is very contagious. Follow up with your regular doctor. GO TO THE ER FOR ANY WORSENING SYMPTOMS OR CONCERNS Clinical Impressions Clinical Impression: Conjunctivitis Stand Alone Forms Stand Alone Forms: Work/School Release Instructions Patient Instructions: How to Instill Eye Drops, DI for Conjunctivitis Discharge ED Provider: Eulogio Wade [facility] General Stated complaint: LT eye redness w/drainage Time Seen by Provider: 08/25/22 13:15 History of Present Illness Provider Complaint: She states that for the past 1 day she has had left eye irritation and discharge. It was matted together this am with yellowish drainage. She denies any injury or foreign body. She states that her vision in the eye is essentially normal. Related Data Home Medications Medication Instructions Recorded Confirmed estradiol 2 mg tablet 2 mg PO DAILY HORMONE 03/05/22 07/08/22 Previous Rx's Medication Instructions Recorded ofloxacin 0.3 % eye drops See Rx Instructions ophthalmic 08/25/22 (eye) .COMPLEX #5 mL Allergies Allergy/AdvReac Type Severity Reaction Status Date / Time sulfamethoxazole Allergy Mild Verified 08/25/22 13:27 [From Bactrim] trimethoprim [From Bactrim] Allergy Mild Verified 08/25/22 13:27 acetaminophen [From PERCOCET] Allergy Unknown MIGRANES Verified 08/25/22 13:27 iodine [IODINE] Allergy Unknown S-BLISTERING Verified 08/25/22 13:27 WELTS oxycodone [From PERCOCET] Allergy Unknown MIGRANES Verified 08/25/22 13:27 STERI STRIPS Allergy Severe BLISTERS Uncoded 03/17/22 14:15 SKIN [facility] Disclaimer: The information contained in this section may have been updated after the patient was seen, as this information can be updated by other users. Medical History Skin cancer Tubular adenoma of colon Surgical History History of appendectomy History of cholecystectomy History of colonoscopy History of hysterectomy History of tubal ligation Social History Smoking Status: Never smoker alcohol intake: current substance use type: denies use current occupational status: employed Travel in the last 8 weeks: None household members: spouse housing: house current occupation: 3M current occupational exposures/hazards: Yes caffeine: Yes ROS Obtained: Yes All systems reviewed & no additional complaints except as documented Constitutional Constitutional: Denies chills and Denies fever(s) Eyes Eyes: Reports eye discharge ENT Ears, Nose, Mouth, and Throat: Denies dizziness, Denies otalgia and Denies sore throat Cardiovascular Cardiovascular: Denies chest pain Respiratory Respiratory: Denies shortness of breath, Denies chest congestion, Denies cough, Denies stridor and Denies wheezing Gastrointestinal Gastrointestingal: Denies nausea or vomiting Musculoskeletal Musculoskeletal: Reports system reviewed and no additional complaints, except as documented and Denies arthralgias Integumentary/Breasts Skin/Breast: Denies rash Neurologic Neurologic: Denies dizziness and Denies paresthesias Allergic/Immunologic Allergic/Immunologic: Denies whee
[2022-08-25 14:51] VITALS: BP 147/92; PULSE 70; RESP 20; TEMP 36.7; O2SAT 96
== END 2022-08-25 14:30 | disposition home or self-care (01) ==
PROVIDERS: Emergency Provider Nurse Practitioner Family; PCP Family Medicine
DX: H10.9 Unspecified conjunctivitis (principal)
CPT/HCPCS: 99212; 99213; G0463

== ENCOUNTER → 2022-09-21 16:33 | Outpatient (CLI) | payer BC, SELFPAY | PROVIDERS: Visit Provider Podiatrist | DX: B35.1 Tinea unguium (principal) | CPT/HCPCS: 87220 ==

== ENCOUNTER → 2022-11-29 10:09 | Outpatient (CLI) | payer BC, SELFPAY ==
[2022-11-29 11:34] LABS: Basophils # 0.1 K/mm3 (0-0.2); Basophils % 0.7 % (0.1-2.0); Eosinophils # 0.2 K/mm3 (0.0-0.4); Eosinophils % 1.8 % (0.1-12.0); Hematocrit 44.3 % (37.0-47.0); Hemoglobin 14.4 g/dL (12.2-16.2); Lymphocytes # 2.9 K/mm3 (0.7-4.5); Lymphocytes % 32.3 % (10-50); Mean Corpuscular HGB Conc 32.5 g/dL (31.8-35.4); Mean Corpuscular Hemoglobin 29.1 pg (27.0-31.2); Mean Corpuscular Volume 89.5 fl (81-99); Mean Platelet Volume 8.2 fl (7.4-10.4); Monocytes # 0.7 K/mm3 (0.1-1.0); Monocytes % 8.1 % (1.7-9.3); Neutrophils # 5.2 K/mm3 (1.8-7.8); Neutrophils % 57.1 % (37.0-80.0); Platelet Count 330 K/mm3 (142-424); Red Blood Count 4.96 M/mm3 (4.20-5.40); White Blood Count 9.1 K/mm3 (4.8-10.8)
[2022-11-29 11:43] LABS: Alanine Aminotransferase 18 U/L (12-78); Albumin Level 3.8 g/dl (3.5-5.0); Albumin/Globulin Ratio 1.4 (1.1-1.8); Alkaline Phosphatase 79 U/L (38-126); Aspartate Amino Transferase 26 U/L (14-36); Blood Urea Nitrogen 11 mg/dl (7-17); Calcium 8.7 mg/dl (8.4-10.2); Carbon Dioxide 28 mmol/L (22.0-30.0); Chloride 101 mmol/L (98-107); Cholesterol 199 mg/dl (140-200); Estimated Glomerular Filt Rate 87 ml/min (>60); GFR (African American) 106 ML/MIN (>60); Globulin 2.8 g/dL (1.3-3.2); Glucose 80 mg/dl (74-100); HDL Cholesterol 100 mg/dl (40-60); Sodium 138 mmol/L (136-145); Total Protein,Serum 6.6 g/dl (6.3-8.2); Triglycerides 112 mg/dl (30-150); VLDL Cholesterol 22 mg/dL (0-40)
[2022-11-29 11:55] LABS: Direct LDL Cholesterol 87.59 mg/dL (100-129)
[2022-11-29 12:02] LABS: 25-OH Vitamin D, Total 26.5 ng/mL (30-100); Free Thyroxine Index 3.8 ug/dL (5.93-13.13); T4 (Thyroxine) 14.8 ug/dl (5.53-11.0); Triiodothryronine (T3) Uptake 26 % (23.5-40.5)
[2022-11-29 12:15] LABS: Thyroid Stimulating Hormone 1.36 uIU/mL (0.465-4.68)
[2022-11-29 12:33] LABS: Vitamin B12 235 pg/mL (239-931)
== END ==
PROVIDERS: PCP Family Medicine; Visit Provider Nurse Practitioner Obstetrics & Gynecology
DX: R53.83 Other fatigue (principal); E55.9 Vitamin D deficiency, unspecified; Z79.899 Other long term (current) drug therapy
CPT/HCPCS: 36415; 80053; 80061; 82306; 82607; 84436; 84443; 84479; 85025

== ENCOUNTER → 2023-02-02 09:34 | Outpatient (CLI) | payer BC, SELFPAY ==
--- NOTE | 2023-02-02 09:35 | MR_ITS ---
FINAL REPORT CLINICAL HISTORY: foot pain heel pain since july 2022 COMPARISON: None FINDINGS: Multiplanar MR imaging of the right foot was performed without contrast. No fractures are visualized, however there is mild bone marrow edema in the inferior aspect of the calcaneal tuberosity. Mild degenerative change is present. The flexor and extensor tendons are intact. No ligamentous injury is identified. The musculature is intact. There is mild posterior plantar fasciitis with adjacent soft tissue edema. There is a 3 mm osteochondral lesion in the medial talar dome. IMPRESSION: Mild posterior plantar fasciitis with adjacent soft tissue edema. Mild degenerative change with a 3 mm osteochondral lesion of the medial talar dome. Mild bone marrow edema inferior aspect of the calcaneal tuberosity. Reviewed, Interpreted and Dictated by Michael Crocker III, MD Transcribed by Bridgette Hennessy Authenticated and [facility]
== END ==
LOC: RAD 09:35
PROVIDERS: PCP Family Medicine; Visit Provider Podiatrist
DX: M79.671 Pain in right foot (principal); M72.2 Plantar fascial fibromatosis
CPT/HCPCS: 73718

== ENCOUNTER 2023-07-13 09:21 | Emergency (ER) | payer BC, SELFPAY ==
[2023-07-13 10:05] VITALS: BP 125/60; PULSE 62; RESP 18; TEMP 37; O2SAT 97; BMI 27.6
--- NOTE | 2023-07-13 10:11 | EXP.UTC ---
Discharge Plan Disposition Patient Disposition: Home, Self-Care Condition: Good Prescriptions Prescriptions: No Action celecoxib 200 mg capsule 200 mg PO DAILY mecobalamin (vitamin B12) 1,000 mcg tablet,chewable 1,000 mcg PO DAILY cholecalciferol (vitamin D3) 125 mcg (5,000 unit) tablet 125 mcg PO DAILY multivitamin [Multiple Vitamins] Tablet 1 tab PO DAILY fluticasone propionate 50 mcg/actuation spray,suspension intranasal Patient Comments: SPRAY 1 SPRAY INTO EACH NOSTRIL EVERY DAY trazodone 150 mg tablet 150 mg PO DAILY estradiol 2 mg tablet See Rx Instructions .ROUTE .COMPLEX Qty: 90 3RF Dose Instruction: TAKE 1 TABLET BY MOUTH EVERY DAY Rx Instructions: TAKE 1 TABLET BY MOUTH EVERY DAY Referrals Follow up/Referrals: Jonathon Hull MD [Primary Care Provider] - See instructions Activity Restrictions/Add. Instructions Additional Instructions/Restrictions: Use the eye drops as directed. Strict hand washing in the house hold, because conjunctivitis is very contagious. Follow up with your regular doctor. GO TO THE ER FOR ANY WORSENING SYMPTOMS OR CONCERNS Clinical Impressions Clinical Impression: Acute conjunctivitis, right eye Stand Alone Forms Stand Alone Forms: Work/School Release Instructions Patient Instructions: How to Instill Eye Drops, Conjunctivitis, DI for Conjunctivitis Discharge ED Provider: Eulogio Wade [facility] General Stated complaint: redness in eyes, itching Time Seen by Provider: 07/13/23 10:11 History of Present Illness Provider Complaint: She states that she has had right eye irritation, redness with yellowish discharge for the past 2 days. She denies any injury or foreign body. Related Data Home Medications Medication Instructions Recorded Confirmed trazodone 150 mg tablet 150 mg PO DAILY 01/18/23 07/13/23 celecoxib 200 mg capsule 200 mg PO DAILY 05/24/23 07/13/23 cholecalciferol (vitamin D3) 125 125 mcg PO DAILY 05/24/23 07/13/23 mcg (5,000 unit) tablet fluticasone propionate 50 intranasal 05/24/23 05/24/23 mcg/actuation nasal spray,suspension mecobalamin (vitamin B12) 1,000 1,000 mcg PO DAILY 05/24/23 07/13/23 mcg chewable tablet multivitamin (Multiple Vitamins 1 tab PO DAILY 05/24/23 07/13/23 tablet) Previous Rx's Medication Instructions Recorded estradiol 2 mg tablet See Rx Instructions .Route 10/18/22 .COMPLEX #90 tabs Allergies Allergy/AdvReac Type Severity Reaction Status Date / Time adhesive Allergy Severe Blister Verified 07/13/23 10:21 sulfamethoxazole Allergy Mild Verified 07/13/23 10:21 [From Bactrim] trimethoprim [From Bactrim] Allergy Mild Verified 07/13/23 10:21 acetaminophen [From PERCOCET] Allergy Unknown MIGRANES Verified 07/13/23 10:21 iodine [IODINE] Allergy Unknown S-BLISTERING Verified 07/13/23 10:21 WELTS oxycodone [From PERCOCET] Allergy Unknown MIGRANES Verified 07/13/23 10:21 STERI STRIPS Allergy Severe BLISTERS Uncoded 02/22/23 09:38 SKIN PFSH PFSH Disclaimer: The information contained in this section may have been updated after the patient was seen, as this information can be updated by other users. Medical History Skin cancer Tubular adenoma of colon Surgical History History of appendectomy History of cholecystectomy History of colonoscopy History of hysterectomy History of tubal ligation Social History Smoking Status: Never smoker alcohol intake: current substance use type: denies use current occupational status: employed Travel in the last 8 weeks: None household members: spouse housing: house current occupation: 3M current occupational exposures/hazards: Yes caffeine: Yes ROS Obtained: Yes All systems reviewed & no
[2023-07-13 10:31] VITALS: BP 125/60; PULSE 62; RESP 18; TEMP 37; O2SAT 97
== END 2023-07-13 10:31 | disposition home or self-care (01) ==
PROVIDERS: Emergency Provider Nurse Practitioner Family; PCP Family Medicine
DX: H10.31 Unspecified acute conjunctivitis, right eye (principal)
CPT/HCPCS: 99212; 99213; G0463

== ENCOUNTER 2023-08-03 10:54 | Outpatient (CLI) | payer BC, SELFPAY ==
--- NOTE | 2023-08-03 10:58 | MM_ITS ---
PROCEDURE INFORMATION: Exam: MG Bilateral Screening 3D Mammography Exam date and time: 08/03/2023 10:44 AM Age: 52 years old Clinical indication: Screening examination. Maternal cousin had breast cancer. TECHNIQUE: Imaging protocol: Bilateral Screening tomosynthesis and 2D mammography including computer-aided detection (CAD) when performed. COMPARISON: 1. MG MM DIG SCREENING MAMM BI W/CAD 06/24/2022 9:41 AM 2. MG DMSB DIG MAMM-SCREEN AMANDA 03/21/2015 8:38 AM 3. MG DMSB DIG MAMM-SCREEN AMANDA 11/21/2013 3:55 PM 4. MG DMSB DIGITAL MAMM-SCREEN BILATERAL 08/22/2012 9:03 AM FINDINGS: MAMMOGRAPHY: Breast composition: The breasts are heterogeneously dense, which may obscure small masses. Mass: None. Architectural distortion: None. Calcifications: No suspicious calcifications. Asymmetric density: No developing asymmetry. Skin thickening: None. Axillary adenopathy: None. IMPRESSION: No mammographic evidence of malignancy. Annual screening is recommended unless otherwise clinically indicated. ASSESSMENT: BI-RADS Category 1: Negative
== END 2023-08-03 23:59 ==
LOC: RAD 10:54
PROVIDERS: PCP Family Medicine; Visit Provider Family Medicine
DX: Z12.31 Encounter for screening mammogram for malignant neoplasm of breast (principal)
CPT/HCPCS: 77063; 77067

== ENCOUNTER 2024-02-21 09:21 | Emergency (ER) | payer BC, SELFPAY ==
[2024-02-21 09:30] VITALS: BP 134/81; PULSE 74; RESP 20; TEMP 36.8; O2SAT 98; BMI 27.8
--- NOTE | 2024-02-21 09:50 | EXP.UTC ---
Discharge Plan Disposition Patient Disposition: Home, Self-Care Condition: Good Prescriptions Prescriptions: New dicyclomine 10 mg capsule 10 mg PO TID PRN (Reason: abdominal pain/cramping) Qty: 20 0RF No Action celecoxib 200 mg capsule 200 mg PO DAILY Patient Comments: TAKE 1 CAPSULE BY MOUTH EVERY DAY WITH FOOD FOR 90 DAYS famotidine 40 mg tablet 40 mg PO DAILY omeprazole 40 mg capsule,delayed release(DR/EC) 40 mg PO AM Patient Comments: TAKE 1 CAPSULE BY MOUTH EVERY DAY 30 MINUTES BEFORE MORNING MEAL FOR 90 DAYS trazodone 150 mg tablet 150 mg PO HS Patient Comments: TAKE 1 TABLET BY MOUTH AT BEDTIME estradiol 2 mg tablet 2 mg PO DAILY Patient Comments: TAKE 1 TABLET BY MOUTH EVERY DAY diclofenac sodium 50 mg tablet,delayed release (DR/EC) 50 mg PO DAILY Patient Comments: TAKE 1 TABLET BY MOUTH TWICE A DAY NEEDED fluticasone propionate 50 mcg/actuation spray,suspension 1 spray INTRANASAL DAILY Patient Comments: SPRAY 1 SPRAY INTO EACH NOSTRIL EVERY DAY levocetirizine 5 mg tablet 5 mg PO DAILY Patient Comments: TAKE 1 TABLET BY MOUTH EVERY DAY Referrals Follow up/Referrals: Jonathon Hull MD [Primary Care Provider] - See instructions Activity Restrictions/Add. Instructions Additional Instructions/Restrictions: Drink extra fluids with and between meals. If you have difficulty drinking, try very small amounts of water or suck on ice chips. ? Avoid fruit juices, as these do not replace minerals and can actually increase diarrhea. ? Children and adults can use sports drinks to replenish electrolytes. Younger children and infants should use products formulated for children, like oral rehydration solutions. ? Eat food in small amounts and let your stomach recover. ? Get lots of rest. You may feel tired or weak. ? No greasy or fried foods for the next 24-48 hours BRAT diet Bananas Rice Apples and Carey ? Make sure to drink plenty of liquids ? Return if needed ? Straight to ER if any life threatening symptoms ? You was given an outpatient order for diarrhea panel, please collect specimen and bring back to outpatient lab then call back to the [facility] or follow up with family doctor for results ? Follow up with family doctor in the next 48-72 hours if no improvement or any worsening of symptoms Clinical Impressions Clinical Impression: Diarrhea Stand Alone Forms Stand Alone Forms: Work/School Release Instructions Patient Instructions: Diarrhea, Dicyclomine Print Language Print Language: Pakistani Discharge ED Provider: Claritza Aranda [facility] HPI General Stated complaint: abd pain, diarrhea Mode of Arrival: Ambulatory Source of Information: Patient Limitations: No Limitations Time Seen by Provider: 02/21/24 09:50 Description of Symptoms (Recalled from Triage Doc. by RN): PATIENT C/O STOMACH CRAMPS, DIARRHEA, AND HEADACHE X 2 DAYS HEENT Symptoms (Recalled from RN notes): Yes Resp Symptoms (Recalled from RN notes): No Skin Symptoms (Recalled from RN notes): No MS Symptoms (Recalled from RN notes): No Functional Status (Recalled from RN notes): WNL History of Present Illness Provider Complaint: Patient states that for the last couple of days she has been having headache, diarrhea and cramping States that she has been going to the bathroom multiple times and it is liquid like State today her stomach was still cramping and diarrhea so she came in to get checked Related Data Home Medications ?Medication ?Instructions ?Recorded ?Confirmed celecoxib 200 mg capsule 200 mg PO DAILY 02/21/24 02/21/24 diclofenac sodium 50 mg 50 mg PO DAILY 02/21/24 02/21/24 tablet,delayed release estradiol 2 mg tablet 2 mg PO DAILY 02/21/24 02/21/24 famotidine 40 mg tablet 40 mg PO DAILY 02/21/24 02/21/24 fluticasone propionate 50 1 spray intranasal DAILY 02/21/24 02/21/24 mcg/actuation nasal spray,suspension levocetirizine 5 mg tablet 5 mg PO DAILY 02/21/24 02/21/24 omeprazole 40 mg capsule,delayed 40 mg PO AM 02/21/24 02/21/24 release trazodone 150 mg tablet 150 mg PO HS 02/21/24 02/21/24 Previous Rx's ?Medication ?Instructions ?Recorded dicyclomine 10 mg capsule 10 mg PO TID PRN abdominal 02/21/24 pain/cramping #20 caps Allergies Allergy/AdvReac Type Severity Reaction Status Date / Time adhesive Allergy Severe Blister Verified 08/31/23 15:01 sulfamethoxazole Allergy Mild Verified 08/31/23 15:01 [From Bactrim] trimethoprim [From Bactrim] Allergy Mild Verified 08/31/23 15:01 acetaminophen [From PERCOCET] Allergy Unknown MIGRANES Verified 08/31/23 15:01 iodine [IODINE] Allergy Unknown S-BLISTERING Verified 08/31/23 15:01 WELTS oxycodone [From PERCOCET] Allergy Unknown MIGRANES Verified 08/31/23 15:01 STERI STRIPS Allergy Severe BLISTERS Uncoded 02/22/23 09:38 SKIN Worker's Comp Is this a Worker's Comp case?: No [facility] Disclaimer: The information contained in this section may have been updated after the patient was seen, as this information can be updated by other users. Medical History Skin cancer Tubular adenoma of colon Surgical History History of appendectomy History of cholecystectomy History of colonoscopy History of hysterectomy History of tubal ligation Social History Smoking Status: Never smoker alcohol intake: current alcohol intake frequency: holidays/special occasions only substance use type: denies use current occupational status: employed Travel in the last 8 weeks: None household members: spouse housing: house current occupation: 3M current occupational exposures/hazards: Yes caffeine: Yes ROS Obtained: Yes All systems reviewed & no additional complaints except as documented and Yes Systems reviewed as appropriate & no additional complaints except as documented Constitutional Constitutional: Reports system reviewed and no additional complaints, except as documented and Reports as per HPI ENT Ears, Nose, Mouth, and Throat: Reports system reviewed and no additional complaints, except as documented and Reports as per HPI Cardiovascular Cardiovascular: Reports system reviewed and no additional complaints, except as documented and Reports as per HPI Gastrointestinal Gastrointestingal: Reports system reviewed and no additional complaints, except as documented, as per HPI, cramping and diarrhea; Denies nausea or vomiting Physical Exam General General appearance: alert and in no apparent distress ENT ENT exam: Present mucous membranes moist Respiratory Respiratory exam: Present normal lung sounds bilaterally; Absent respiratory distress or wheezes Cardiovascular Cardiovascular exam: Present regular rate, normal rhythm and normal heart sounds Abdominal Exam Abdominal exam: Present soft and normal bowel sounds; Absent distention Neurological Exam Neurological exam: Present alert, oriented X3 and normal gait Medical Decision Making [place] Inquiry Pt receiving controlled substance: No [place] was queried for this patient: No Vital Signs: 02/21/24 09:30 Temperature 98.2 F Temperature Source Oral Pulse Rate [Left Brachial] 74 Respiratory Rate 20 Blood Pressure [Left Arm] 134/81 Blood Pressure Mean [Left Arm] 98 Blood Pressure Source [Left Arm] Automatic Cuff Blood Pressure Position [Left Arm] Sitting 02 Sat by Pulse Oximetry 98 Oxygen Delivery Method Room Air
[2024-02-21 09:55] VITALS: BP 134/81; PULSE 74; RESP 20; TEMP 36.8; O2SAT 98
== END 2024-02-21 09:58 | disposition home or self-care (01) ==
PROVIDERS: Emergency Provider Nurse Practitioner; PCP Family Medicine
DX: R19.7 Diarrhea, unspecified (principal); R25.2 Cramp and spasm; R51.9 Headache, unspecified
CPT/HCPCS: 99212; 99214; G0463

== ENCOUNTER 2025-02-01 16:11 | Outpatient (CLI) | payer BC, SELFPAY ==
--- OUTSIDE RECORDS SUMMARY | 2024-02-10 05:30 | XMS_ITS ---
Author Organization [facility] Address [address] [place] [id number] Care Team Providers Care Color Worker Name Role Phone Brandi Lowe Primary Care Provider [phone] Jonathon Hull Unavailable [phone] Allergies Allergen (clinical drug ingredient) Drug/Non Drug Allergy documented on EMR Reaction Allergy Type Onset Date Status sulfamethoxazole / trimethoprim Bactrim DS itching, rash Drug Allergy Active Iodine rash, burn Drug Allergy Active Steri-Strip Compound Benzoin itching Drug Allergy Active Results Component Value Reference Range Notes P-Comprehensive Metabolic Pa lucero (CMP) Reviewed date:02/13/2024 09:36:14 AM Interpretation: Normal Performing Lab: Notes/Report: Test performed by [facility] [address] [place] [address] , [address], [place] [address] Bayron Dumont MD, [employer] CLIA: [id number] Sodium 138 135-145 mmol/L Potassium 4.1 3.5-5.3 mmol/L Chloride 102 97-108 mmol/L CO2 25 22-32 mmol/L Glucose 85 65-99 mg/dL BUN 14 6-20 mg/dL Creatinine 0.89 0.50-1.00 mg/dL Calcium 9.4 8.6-10.4 mg/dL eGFR by Creatinine 76 >59 mL/min/1.73m2 Protein 6.7 6.0-8.3 g/dL Albumin 4.1 3.5-5.3 g/dL Alkaline Phosphatase 100 35-121 IU/L ALT (SGPT) 20 <5-47 IU/L AST (SGOT) 21 <5-40 IU/L Bilirubin, Total 0.4 <0.2-1.2 mg/dL A/G Ratio 1.6 1.1-2.5 mg/dL P-Lipid Panel Reviewed date:02/13/2024 09:36:14 AM Interpretation:chol 262, trigs 245, non-198, ldl 149 Performing Lab: Notes/Report: Test performed by [facility], [address] , [address], [place] [address] Bayron Dumont MD, [employer] CLIA: [id number] Cholesterol 262 <200 mg/dL Triglycerides 245 <150 mg/dL HDL Cholesterol 64 >39 mg/dL Cholesterol / HDL Ratio 4.09 0.00-4.44 Ratio Non-HDL Cholesterol 198 <130 mg/dL LDL Cholesterol (Calculation) 149 <130 mg/dL LDL Cholesterol Levels* Less than 100 mg/dL Optimal 100 to 129 mg/dL Near Optimal/ Above Optimal 130 to 159 mg/dL Borderline High 160 to 189 mg/dL High 190 mg/dL and above Very High * Categories as recommended by the 2004 ATPIII guidelines LDL/HDL Ratio 2.3 <3.3 Ratio LDL Cholesterol Patient History Test Date: 02/10/2024 LDL Results: 149 Units: mg/dL % Change: - P-Vitamin D 25-Hydroxy Reviewed date:02/13/2024 09:36:14 AM Interpretation: Normal Performing Lab: Notes/Report: Test performed by [facility] [address] [place] [address] , [address], [place] [address] Bayron Dumont MD, [employer] CLIA: [id number] Vitamin D 25-Hydroxy 94.9 30.0-100.0 ng/mL Interpretation of Vitamin D 25 OH: < 20 ng/mL - Deficiency 20 - 29 ng/mL - Insufficiency 30 - 100 ng/mL - Sufficiency > 100 ng/mL - Super-therapeutic- toxicity may occur above this level. Clinical correlation required. REASON FOR VISIT 5 months w fasting labs Medications Medication SIG (Take, Route, Frequency, Duration) Notes Start Date End Date Status traZODone HCl 150 MG 1 tablet at bedtime Orally At Bed Time Active Fluticasone Propionate 50 MCG/ACT SPRAY 1 SPRAY INTO EACH NOSTRIL EVERY DAY; Duration: 90 Active Diclofenac Sodium 50 MG 1 tablet as need ed Orally Twice a day 01/02/2024 Active Xyzal Allergy 24HR 5 MG 1 tablet in the evening Orally Once a day; Duration: 30 day(s) Active Estradiol 2 MG 1 tab(s) orally once a day; Duration: 30 day(s) Active Omeprazole 40 MG 1 capsule 30 minutes before morning meal Orally Once a day; Duration: 90 days 02/10/2024 Active Vital Signs Weight 171 lbs 02/10/2024 Blood pressure systolic 114 mm Hg 02/10/20 24 Blood pressure diastolic 70 mm Hg 024 Heart Rate 56 /min 02/10/2024 Height 65 in 02/10/2024 BMI 28.45 kg/m2 02/10/2024 Encounters Encounter Location Date Provider Diagnosis [facility] [address] [place], [place] [id number] 02/10/2024 Jonathon Hancock Polyarthralgia M25.5 0 ; Dyspepsia R10.13 ; Primary insomnia F51.01 ; Vitamin D deficiency E55.9 and Well adult exam Z00.00 Assessments Encounter Date Diagnosis (ICD Code) Assessment Notes Treatment Notes Treatment Clinical Notes Section Notes 02/10/2024 Polyarthralgia (ICD-10 - M25.50) Discussed using Duloxetine in the future if symptoms persist 02/10/2024 Dyspepsia (ICD-10 - R10.13) 02/10/2024 Primary insomnia (ICD-10 - F51.01) 02/10/2024 Vitamin D deficiency (ICD-10 - E55.9) 02/10/2024 Well adult exam (ICD-10 - Z00.00) Plan Of Treatment Medication Medication Name Sig Start Date Stop Date Notes traZODone HCl 150 MG 1 tablet at bedtime Orally At Bed Time Diclofenac Sodium 50 MG 1 tablet as need ed Orally Twice a day 01/02/2024 Famotidine 40 MG 1 tablet at bedtime Orally Once a day Omeprazole 40 MG 1 capsule 30 minutes before morning meal Orally Once a day; Duration: 90 days 02/10/2024 Treatment Notes Assessment Notes Polyarthralgia Discussed using Dulo xetine in the future if symptoms persist Next Appt Details Follow Up: 6 Months, Reason: Provider Name:Jonathon Clay , 07/31/2025 09:45:00 AM, [address] [facility], [address], [place], [place], [id number], Progress Notes * NADIYA MARCOSKATELYNB:1970 ( 54 yo F)Acc No.[id number]:02/10/2024 Progress Notes Patient: HELLEN WOMACK Provider: Terese Hull M.D. :1970 A ge:53 Y S ex:Female Date:02/10/2024 Address:[address] [place] [address] [place], [id number] Pcp:Brandi Lowe Subjective: * Chief Complaints: * 1 . 5 months w fasting labs. * HPI: P sychology: 53 year old female presents with c/o sleep disturbances P t here to f/u, states she is doing well on Trazodone and does not have any concerns. * ROS: D ERMATOLOGY: no R mey. n o H yash. G ASTROENTEROLOGY: no N ausea. n o V omiting. U ROLOGY: no D ifficulty urinating. n o B lood in urine. * Medical History: H PV 1987, Osteoarthritis, RAQUEL positive 2022, s/p Rheumatology evaluation, Allergic rhinitis, Colon polyps, Plantar fasciitis, s/p podiatry evaluation, Vitamin D deficiency. * Surgical History: L T Big Toe Bone Spur , btl , Appendectomy , Cholecystectomy , Widom Teeth Extracted , [facility]one Biopsy 1987, Tubal Ligation , Ovary Removal 11/2007, RT L5, S1 01/19/2013, Ablasion 01/2014, LT Toe Joint Replacement 03/01/2016, Gum Graft 03/2017, colonoscopy 02/2022. * Hospitalization/Major Diagno stic Procedure: C OVID Pneumonia- [facility] 11/14/2020. * Family History: F ather: , complications of diabetes, heart. M other: alive. 2 daughter(s) - healthy. . * Social History: C URRENT TOBACCO USE S moking Status: Patient does NOT smoke. C affeine: yes, frequency:coffee, pop. Home smoke detector use: no. Marital Status: . Past smoking status: no. * Medications: T aking Xyzal Allergy 24HR 5 MG Tablet 1 tablet in the evening Orally Once a day , Taking Estradiol 2 MG Tablet 1 tab(s) orally once a day , Taking Fluticasone Propionate 50 MCG/ACT Suspension SPRAY 1 SPRAY INTO EACH NOSTRIL EVERY DAY , Taking traZODone HCl 150 MG Tablet 1 tablet at bedtime Orally At Bed Time , Taking Diclofenac Sodium 50 MG Tablet Delayed Release 1 tablet as needed Orally Twice a day , Taking Famotidine 40 MG Tablet 1 tablet at bedtime Orally Once a day , Discontinued Vitamin B-12 1000 MCG Tablet 1 tab(s) orally once a day , Discontinued Vitamin D3 50 MCG (1999 UT) Capsule 2 cap(s) orally once a day , Medication List reviewed and reconciled with the patient * Allergies: I odine: rash, burn, Steri-Strip Compound Benzoin: itching, Bactrim DS: itching, rash. Objective: * Vitals: W t:171, Temp:97.8, BP:114/70, HR:56, Nurse:cari, Ht: 65, BMI:28.45. * Examination: G eneral Examination: General Appearance: N AD. H eart: R SR. L ungs:?clear to auscultation. E xtremities: n o leg edema. Assessment: * Assessment: 1. P olyarthralgia - M25.50 (Primary) 2 . D yspepsia - R10.13 ?3. P rimary insomnia - F51.01 4 . V itamin D deficiency - E55.9 ? 5 . W ell adult exam - Z00.00 Plan: * Treatment: 2. D yspepsia Stop Famotidine Tablet, 40 MG, 1 tablet at bedtime, Orally, Once a day; S tart Omeprazole Capsule Delayed Release, 40 MG, 1 capsule 30 minutes before morning meal, Orally, Once a day, 90 days, 90, Refills 1. 3. P rimary insomnia Continue traZODone HCl Tablet, 150 MG, 1 tablet at bedtime, Orally, At Bed Time. 4. V itamin D deficiency L AB: P-Vitamin D 25-Hydroxy (Collection Date & Time - 02/10/2024 08:45 AM) N ormal Value Reference Range V itamin D 25-Hydroxy 94.9 30.0-100.0 - ng/mL * Kyung Sidhu 02/13/2024 9:36: 11 AM >See phone encounter 5.?Well adult exam?LAB: P-Comprehensive Metabolic Panel (CMP) (Collection Date & Time - 02/10/2024 08:45 AM)?Normal* Value Reference Range A /G Ratio 1.6 1.1-2.5 - mg/dL * A lbumin 4.1 3.5-5.3 - g/dL * A lkaline Phosphatase 100 35-121 - IU/L * A LT (SGPT) 20 <5-47 - IU/L * A ST (SGOT) 21 <5-40 - IU/L * B ilirubin, Total 0.4 <0.2-1.2 - mg/dL * B UN 14 6-20 - mg/dL * C alcium 9.4 8.6-10.4 - mg/dL * C hloride 102 97-108 - mmol/L * C O2 25 22-32 - mmol/L * C reatinine 0.89 0.50-1.00 - mg/dL * G lucose 85 65-99 - mg/dL * P otassium 4.1 3.5-5.3 - mmol/L * S odium 138 135-145 - mmol/L * P rotein 6.7 6.0-8.3 - g/dL * e GFR by Creatinine 76 >59 - mL/min/1.73m2 * TheaKyung 02/13/2024 9:36: 11 AM >See phone encounter ?LAB: P-Lipid Panel (Collection Date & Time - 02/10/2024 08:45 AM)?chol 262, trigs 245, non-198, ldl 149* Value Reference Range C holesterol / HDL Ratio 4.09 0.00-4.44 - Ratio * C holesterol 262 H <200 - mg/dL * H DL Cholesterol 64 >39 - mg/dL * L DL Cholesterol (Calculation) 149 H <130 - mg/d L * L DL/HDL Ratio 2.3 <3.3 - Ratio * N on-HDL Cholesterol 198 H <130 - mg/dL * T riglycerides 245 H <150 - mg/dL * Kyung Sidhu 02/13/2024 9:36: 11 AM >See phone encounter * Follow Up: 6 Months * Images: Billing Information: * Visit Code: 38652 Office Visit, Est Pt., Level 4. * Procedure Codes: * Electronic signature of Yulisa Hull MD on 02/01/2025 at 04:13 PM EDT Sign off status: Pending * Provider: Terese Hull M.D. Date: 02/10/2024 Generated for Belia bran/Yoly/eTrashidsmitting on: 02/01/2025 04:13 PM EDT History and Physical Notes * HPI (History of Present Illness) Category Sub-Category Detail Notes Category Not es Psychology sleep disturbances Pt here to f/ u, states she is doing well on Trazodone and does not have any concerns Examination Category Sub-Category Detail Notes Category Not es General Examination Heart: RSR Lungs: clear to auscultatio n Extremities: no leg edema General Appearance: NAD
--- OUTSIDE RECORDS SUMMARY | 2024-08-13 11:45 | XMS_ITS ---
Author Organization [facility] Address [address] [facility] [address] [place] [id number] Care Team Providers Care Religious Education Coordinator Name Role Phone Brandi Lowe Primary Care Provider Jonathon Hull Unavailable [phone] Allergies Allergen (clinical drug ingredient) Drug/Non Drug Allergy documented on EMR Reaction Allergy Type Onset Date Status sulfamethoxazole / trimethoprim Bactrim DS itching, rash Drug Allergy Active Iodine rash, burn Drug Allergy Active Steri-Strip Compound Benzoin itching Drug Allergy Active REASON FOR VISIT 6 month f/u Medications Medication SIG (Take, Route, Frequency, Duration) Notes Start Date End Date Status Fluticasone Propionate 50 MCG/ACT SPRAY 1 SPRAY INTO EACH NOSTRIL EVERY DAY; Duration: 90 Active Estradiol 2 MG 1 tab(s) orally once a day; Duration: 30 day(s) Active Xyzal Allergy 24HR 5 MG 1 tablet in the evening Orally Once a day; Duration: 30 day(s) Active Omeprazole 40 MG 1 capsule 30 minutes before morning meal Orally Once a day 02/10/2024 Active traZODone HCl 150 MG 1 tablet at bedtime Orally At Bed Time Not-Taking Celecoxib 200 MG 1 capsule with food Orally Once a day; Duration: 90 days 08/13/2024 Active Vital Signs Weight 171.7 lbs 08/13/2024 Blood pressure systolic 116 mm Hg 08/13/19 25 Blood pressure diastolic 80 mm Hg 025 Heart Rate 76 /min 08/13/2024 Height 65 in 08/13/2024 BMI 28.57 kg/m2 08/13/2024 Encounters Encounter Location Date Provider Diagnosis [facility] [address] [facility] [address] [facility] [address] [place] [id number] 08/13/2024 Jonathon Hull Chronic heartburn R1 2 and Polyarthralgia M25.50 Assessments Encounter Date Diagnosis (ICD Code) Assessment Notes Treatment Notes Treatment Clinical Notes Section Notes 08/13/2024 Chronic heartburn (ICD-10 - R12) 08/13/2024 Polyarthralgia (ICD-10 - M25.50) Plan Of Treatment Medication Medication Name Sig Start Date Stop Date Notes Omeprazole 40 MG 1 capsule 30 minutes before morning meal Orally Once a day 02/10/2024 Celecoxib 200 MG 1 capsule with food Orally Once a day; Duration: 90 days 08/13/2024 Diclofenac Sodium 50 MG 1 tablet Orally Twice a day 2023 Next Appt Details Follow Up: via phone to repo rt progress, 6 Months fasting, Reason: Provider Name:Jonathon Clay , 07/31/2025 09:45:00 AM, [address] [facility] [address] [facility], [address], [place], [id number], Progress Notes * NADIYA ANDERSONKATELYNB:1970 ( 54 yo F)Acc No.[id number]:08/13/2024 Progress Notes Patient: HELLEN WOMACK Provider: Terese Hull M.D. :1970 A ge:53 Y S ex:Female Date:08/13/2024 Address:[place], [id number] Pcp:Brandi Lowe Subjective: * Chief Complaints: * 1 . 6 month f/u. * HPI: P sychology: 53 year old female presents with c/o sleep disturbances P t is here for a 6 month f/u on sleep disturbances. Pt sts she is still doing on her Trazodone medication. Pt sts she does not have trouble falling asleep now, but does have trouble staying asleep. Pt sts the reason she has trouble staying asleep is because of the pain in her feet. * ROS: D ERMATOLOGY: no R mey. n o H yash. G ASTROENTEROLOGY: no N ausea. H eartburn y es. n o V omiting.? M USCULOSKELETAL: Joint pain y es. U ROLOGY: no D ifficulty urinating. n [...] Hospitalization/Major Diagno stic Procedure: C OVID Pneumonia- [facility] [place] 11/14/2020. * Family History: F ather: , [...] INTO EACH NOSTRIL EVERY DAY , Taking Omeprazole 40 MG Capsule Delayed Release 1 capsule 30 minutes before morning meal Orally Once a day , Taking Diclofenac Sodium 50 MG Tablet Delayed Release 1 tablet Orally Twice a day , Not-Taking traZODone HCl 150 MG Tablet 1 tablet at bedtime Orally At Bed Time , Medication List reviewed and reconciled with the patient * Allergies: I odine: rash, burn, Steri-Strip Compound Benzoin: itching, Bactrim DS: itching, rash. Objective: * Vitals: W t:171.7, Temp:97.8, BP:116/80, HR:76, Nurse:KERA, Ht: 65, BMI:28.57. * Examination: G eneral Examination: General Appearance: N AD. H eart: R SR. L ungs:?clear to auscultation. Assessment: * Assessment: 1. C hronic heartburn - R12 (Primary) 2 . P olyarthralgia - M25.50 ? Plan: * Treatment: 2. P olyarthralgia Stop Diclofenac Sodium Tablet Delayed Release, 50 MG, 1 tablet, Orally, Twice a day; S tart Celecoxib Capsule, 200 MG, 1 capsule with food, Orally, Once a day, 90 days, 90 Capsule, Refills 1.? * Follow Up: v ia phone to report progress, 6 Months fasting * Images: Billing Information: * Visit Code: 16133 Office Visit, Est Pt., Level 3. * Procedure Codes: * Electronic signature of Yulisa Hull MD on 02/01/2025 at 04:13 PM EDT Sign off status: Pending * Provider: Terese Hull M.D. Date: 0 08/13/2024 Generated for Belia bran/Yoly/Madhaviitting on: 0 02/01/2025 04:13 PM EDT History and Physical Notes * HPI (History of Present Illness) Category Sub-Category Detail Notes Category Not es Psychology sleep disturbances Pt is here fo r a 6 month f/u on sleep disturbances. Pt sts she is still doing on her Trazodone medication. Pt sts she does not have trouble falling asleep now, but does have trouble staying asleep. Pt sts the reason she has trouble staying asleep is because of the pain in her feet Examination Category Sub-Category Detail Notes Category Not es General Examination Heart: RSR Lungs: clear to auscultatio n General Appearance: NAD
--- OUTSIDE RECORDS SUMMARY | 2025-01-28 05:15 | XMS_ITS ---
Author Organization [facility] Address [address] [facility] [address] [place] [id number] Care Team Providers Care Upsetter Helper Name Role Phone Brandi Lowe Primary Care Provider Jonathon Hull Unavailable [phone] Allergies Allergen (clinical drug ingredient) Drug/Non Drug Allergy documented on EMR Reaction Allergy Type Onset Date Status sulfamethoxazole / trimethoprim Bactrim DS itching, rash Drug Allergy Active Iodine rash, burn Drug Allergy Active Steri-Strip Compound Benzoin itching Drug Allergy Active Results Component Value Reference Range Notes CBC Venipuncture (in house) Reviewed date:01/29/2025 09:40:33 AM Interpretation:Normal Performing Lab: Notes/Report: Normal wbc 8.8 3.5 - 10 lymph 32.2% 15 - 50 mid 8.1% 2 - 15 gran 59.7% 35 - 80 rbc 5.22 3.5 - 5.5 hgb 15.4 11.5 - 16.5 hct 45.4 35 - 55 mcv 86.9 75 - 100 mch 29.5 25 - 35 mchc 33.9 31 - 38 platlet 385 100 - 400 P-Comprehensive Metabolic Pa lucero (CMP) Reviewed date:01/29/2025 09:40:32 AM Interpretation:Normal Performing Lab: Notes/Report: Test performed by [facility] [address] [place] [address] , [address], [place] [address] Bayron Dumont MD, Deportation Examiner CLIA: [id number] Sodium 141 135-145 mmol/L Potassium 4.7 3.5-5.3 mmol/L Chloride 106 97-108 mmol/L CO2 29 20-32 mmol/L Glucose 85 65-99 mg/dL BUN 12 6-20 mg/dL Creatinine 0.67 0.50-1.00 mg/dL Calcium 9.7 8.6-10.4 mg/dL eGFR by Creatinine 102 >59 mL/min/1.73m2 Protein 7.1 6.0-8.3 g/dL Albumin 4.2 3.5-5.3 g/dL Alkaline Phosphatase 105 35-121 IU/L ALT (SGPT) 15 <5-47 IU/L AST (SGOT) 16 <5-40 IU/L Bilirubin, Total 0.5 <0.2-1.2 mg/dL A/G Ratio 1.4 1.1-2.5 P-T4 Free (thyroxine) Reviewed date:01/29/2025 09:40:32 AM Interpretation:Normal Performing Lab: Notes/Report: Test performed by [facility] [address] [place] [address] , [place] [address] Bayron Dumont MD, Deportation Examiner CLIA: [id number] Thyroxine Free (free T4) 1.03 0.86-1.76 ng/dL P-Lipid Panel Reviewed date:01/29/2025 09:40:32 AM Interpretation:Chol 265, Trigs 215, Non-HDL 197, LDL 154 Performing Lab: Notes/Report: Test performed by [facility] [address] [place] [address] , [place] [address], [place] [address] Bayron Dumont MD, Deportation Examiner CLIA: [id number] Cholesterol 265 <200 mg/dL Triglycerides 215 <150 mg/dL HDL Cholesterol 68 >39 mg/dL Cholesterol / HDL Ratio 3.90 0.00-4.44 Ratio Non-HDL Cholesterol 197 <130 mg/dL LDL Cholesterol (Calculation) 154 <130 mg/dL LDL Cholesterol Levels* Less than [...] Results: 149 Units: mg/dL % Change: - Test Date: 01/28/2025 LDL Results: 154 Units: mg/dL % Change: +3% P-TSH Reviewed date:01/29/2025 09:40:33 AM Interpretation:Normal Performing Lab: Notes/Report: Test performed by [facility] [address] , [place] [address] Bayron Dumont MD, Deportation Examiner CLIA: [id number] TSH 2.00 0.43-5.25 mU/L P-Vitamin D 25-Hydroxy Reviewed date:01/29/2025 09:40:33 AM Interpretation:Normal Performing Lab: Notes/Report: Test performed by [facility] [address] , [place] [address] Bayron Dumont MD, Deportation Examiner CLIA: [id number] Vitamin D 25-Hydroxy 92.4 30.0-100.0 ng/mL Interpretation of Vitamin D 25 OH: < 20 ng/mL - Deficiency 20 - 29 ng/mL - Insufficiency 30 - 100 ng/mL - Sufficiency > 100 ng/mL - Super-therapeutic- toxicity may occur above this level. Clinical correlation required. REASON FOR VISIT 6 month ckup Medications Medication SIG (Take, Route, Frequency, Duration) Notes Start Date End Date Status Omeprazole 40 MG TAKE 1 CAPSULE BY [facility] EVERY DAY 30 MINUTES BEFORE MORNING MEAL FOR 90 DAYS; Duration: 90 Active Xyzal Allergy 24HR 5 MG 1 tablet in the evening Orally Once a day; Duration: 90 days Active Fluticasone Propionate 50 MCG/ACT SPRAY 1 SPRAY INTO EACH NOSTRIL EVERY DAY; Duration: 90 Active Celecoxib 200 MG 1 capsule with food Orally Once a day; Duration: 90 days 08/13/2024 Active B12 5000 MCG as directed Sublingual Active Vitamin D3 125 MCG (5000 UT) 1 capsule Orally Once a day Active Estradiol 2 MG 1 tab(s) orally once a day; Duration: 30 day(s) Active Problems Problem Type SNOMED Code ICD Code Onset Dates Problem Status W/U Status Risk Notes Problem Mixed hyperlipidemia (324701832) Mixed hyperlipidemia (E78.2) Active confirmed Problem Acquired hypertriglyceridemia (E78.1) Active confirmed Problem Gastroesophageal reflux disease without esophagitis (532660878) Gastroesophageal reflux disease without esophagitis (K21.9) Active confirmed Vital Signs Weight 169 lbs 01/28/2025 Blood pressure systolic 120 mm Hg 01/29/20 25 Blood pressure diastolic 74 mm Hg 025 Heart Rate 85 /min 01/28/2025 Height 65 in 01/28/2025 BMI 28.12 kg/m2 01/28/2025 Encounters Encounter Location Date Provider Diagnosis [facility] [address] [place], [place] [id number] 01/28/2025 Jonathon [place] Mixed hyperlipidemia E78.2 ; Acquired hypertriglyceridemia E78.1 ; Vitamin D deficiency E55.9 ; Allergic rhinitis, unspecified seasonality, unspecified trigger J30.9 ; Gastroesophageal reflux disease without esophagitis K21.9 ; bed bug exterminator use of drug Z79.899 ; Breast cancer screening by mammogram Z12.31 and Colon cancer screening Z12.11 Assessments Encounter Date Diagnosis (ICD Code) Assessment Notes Treatment Notes Treatment Clinical Notes Section Notes 01/28/2025 Mixed hyperlipidemia (ICD-10 - E78.2) 01/28/2025 Acquired hypertriglyceridemia (ICD-10 - E78.1) 01/28/2025 Vitamin D deficiency (ICD-10 - E55.9) 01/28/2025 Allergic rhinitis, unspecified seasonality, unspecified trigger (ICD-10 - J30.9) 01/28/2025 Gastroesophageal ref lux disease without esophagitis (ICD-10 - K21.9) 01/28/2025 long-term use of zehra g (ICD-10 - Z79.899) 01/28/2025 Breast cancer screen ing by mammogram (ICD-10 - Z12.31) 01/28/2025 Colon cancer screeni ng (ICD-10 - Z12.11) Plan Of Treatment Medication Medication Name Sig Start Date Stop Date Notes Xyzal Allergy 24HR 5 MG 1 tablet in the evening Orally Once a day; Duration: 90 days Pending Test Test Name Order Date colonoscopy 01/28/2025 Mammogram 01/28/2025 Next Appt Details Follow Up: 6 Months, Reason: Provider Name:Jonathon Clay ry, 07/31/2025 09:45:00 AM, [address], [address], [place], [place], [phone], Progress Notes * MONICA MOHANB:1970 ( 54 yo F)Acc No.[id number]:01/28/2025 Progress Notes Patient: HELLEN WOMACK Provider: Terese Hull M.D. :1970 A ge:54 Y S ex:Female Date:01/28/2025 Address:[address] [place] [address] [place] , [id number] Pcp:Brandi Lowe Subjective: * Chief Complaints: * 1 . 6 month ckup. * HPI: H PI: 54 year old female presents with c/o Patient is here today for?Pt here for 6 mo f/u. Pt states she is doing well and does not have any concerns today. Pt states she does need rf on Xyzal. * ROS: D ERMATOLOGY: no R mey. n o H yash. G ASTROENTEROLOGY: no N ausea. n o V omiting. U ROLOGY: no D ifficulty urinating. n o B lood in urine. * Medical History: H PV 1987, Osteoarthritis, RAQUEL positive 2022, s/p Rheumatology evaluation, Allergic rhinitis, Colon polyps, Plantar fasciitis, s/p podiatry evaluation, Vitamin D deficiency, Hyperlipidemia, Hypertriglyceridemia. * Surgical History: L T Big Toe Bone Spur , btl , Appendectomy , Cholecystectomy , Widom Teeth Extracted , [facility]one Biopsy 1987, Tubal Ligation , Ovary Removal 11/2007, RT L5, S1 01/19/2013, Ablasion 01/2014, LT Toe Joint Replacement 03/01/2016, Gum Graft 03/2017, colonoscopy 02/2022. * Hospitalization/Major Diagno stic Procedure: C OVID Pneumonia- [facility] [place]/14/2020. * Family History: F ather: , complications of diabetes, heart. M other: alive. 2 daughter(s) - healthy. . * Social History: C URRENT TOBACCO USE: No . C affeine: yes, frequency:coffee, pop. Home smoke detector use: no. Marital Status: . Past smoking status: no. * Medications: T aking Vitamin D3 125 MCG (5000 UT) Capsule 1 capsule Orally Once a day , Taking B12 5000 MCG Tablet Sublingual as directed Sublingual , Taking Xyzal Allergy 24HR 5 MG Tablet 1 tablet in the evening Orally Once a day , Taking Estradiol 2 MG Tablet 1 tab(s) orally once a day , Taking Celecoxib 200 MG Capsule 1 capsule with food Orally Once a day , Taking Fluticasone Propionate 50 MCG/ACT Suspension SPRAY 1 SPRAY INTO EACH NOSTRIL EVERY DAY , Taking Omeprazole 40 MG Capsule Delayed Release TAKE 1 CAPSULE BY MOUTH EVERY DAY 30 MINUTES BEFORE MORNING MEAL FOR 90 DAYS , Discontinued traZODone HCl 150 MG Tablet 1 tablet at bedtime Orally At Bed Time , Medication List reviewed and reconciled with the patient * Allergies: I odine: rash, burn, Steri-Strip Compound Benzoin: itching, Bactrim DS: itching, rash. Objective: * Vitals: W t: 169, Temp: 97.9, BP: 120/74, HR: 85, Nurse: cari, Ht: 65, BMI:28.12. * Examination: G eneral Examination: General Appearance: N AD. H EENT: T M's normal.?Heart: R SR. L ungs: c lear to auscultation. E xtremities: n o leg edema. Assessment: * Assessment: 1. M ixed hyperlipidemia - E78.2 (Primary) 2 . A cquired hypertriglyceridemia - E78.1 3 . V itamin D deficiency - E55.9 4 . A llergic rhinitis, unspecified seasonality, unspecified trigger - J30.9 5 . G astroesophageal reflux disease without esophagitis - K21.9 6 . L piper term use of drug - Z79.899 7 . B reast cancer screening by mammogram - Z12.31 8 . C olon cancer screening - Z12.11 Plan: * Treatment: Value Reference Range A /G Ratio 1.4 1.1-2.5 - * A lbumin 4.2 3.5-5.3 - g/dL * A lkaline Phosphatase 105 35-121 - IU/L * A LT (SGPT) 15 <5-47 - IU/L * A ST (SGOT) 16 <5-40 - IU/L * B ilirubin, Total 0.5 <0.2-1.2 - mg/dL * B UN 12 6-20 - mg/dL * C alcium 9.7 8.6-10.4 - mg/dL * C hloride 106 97-108 - mmol/L * C O2 29 20-32 - mmol/L * C reatinine 0.67 0.50-1.00 - mg/dL * G lucose 85 65-99 - mg/dL * P otassium 4.7 3.5-5.3 - mmol/L * S odium 141 135-145 - mmol/L * P rotein 7.1 6.0-8.3 - g/dL * e GFR by Creatinine 102 >59 - mL/min/1.73m2 * Betsy Cole 01/29/2025 09:4 0:25 AM EDT > See phone encounter ?LAB: P-Lipid Panel (Collection Date & Time - 01/28/2025 08:50 AM)?Chol 265, Trigs 215, Non-HDL 197, LDL 154* Value Reference Range C holesterol / HDL Ratio 3.90 0.00-4.44 - Ratio * C holesterol 265 H <200 - mg/dL * H DL Cholesterol 68 >39 - mg/dL * L DL Cholesterol (Calculation) 154 H <130 - mg/d L * L DL/HDL Ratio 2.3 <3.3 - Ratio * N on-HDL Cholesterol 197 H <130 - mg/dL * T riglycerides 215 H <150 - mg/dL * Betsy Cole 01/29/2025 09:4 0:25 AM EDT > See phone encounter 2.?Acquired hypertriglyceridemia?LAB: P-T4 Free (thyroxine) (Collection Date & Time - 01/28/2025 08:50 AM)? Normal* Value Reference Range T hyroxine Free (free T4) 1.03 0.86-1.76 - ng/d L * Betsy Cole 01/29/2025 09:4 0:25 AM EDT > See phone encounter ?LAB: P-TSH (Collection Date & Time - 01/28/2025 08:50 AM)?Normal* Value Reference Range T SH 2.00 0.43-5.25 - mU/L * Betsy Cole 01/29/2025 09:4 0:25 AM EDT > See phone encounter 3.?Vitamin D deficiency?LAB: P-Vitamin D 25-Hydroxy (Collection Date & Time - 01/28/2025 08:50 AM)? Normal* Value Reference Range V itamin D 25-Hydroxy 92.4 30.0-100.0 - ng/mL * Betsy Cole 01/29/2025 09:4 0:25 AM EDT > See phone encounter 4.?Allergic rhinitis, unspecified seasonality, unspecified trigger? Refill Xyzal Allergy 24HR Tablet, 5 MG, 1 tablet in the evening, Orally, Once a day, 90 days, 90, Refills 1.??5.?bed bug exterminator use of drug?LAB: CBC Venipuncture (in house) (Collection Date & Time - 01/28/2025)? Normal* Value Reference Range w bc 8.8 3.5 - 10 * l ymph 32.2% 15 - 50 * m id 8.1% 2 - 15 * g ran 59.7% 35 - 80 * r bc 5.22 3.5 - 5.5 * h gb 15.4 11.5 - 16.5 * h ct 45.4 35 - 55 * m cv 86.9 75 - 100 * m ch 29.5 25 - 35 * m chc 33.9 31 - 38 * p latlet 385 100 - 400 * So Lewis 01/28/2025 10:38:0 7 AM EDT > Douglas Betsy 01/29/2025 09:40:25 AM EDT > See phone encounter 6.?Breast cancer screening by mammogram?Imaging: Mammogram* Tabatha Canas 01/28/2025 10:17 :13 AM EDT > faxed to [facility] Scheduling 7.?Colon cancer screening?Imaging: colonoscopy* Tabatha Canas 01/28/2025 10:24 :18 AM EDT > faxed to Dr. Quiroz office * Procedure Codes: 8 5025 CBC WITH AUTO DIFF * Follow Up: 6 Months * Images: Billing Information: * Visit Code: 61357 Office Visit, Est Pt., Level 4. * Procedure Codes: 45000 CBC WITH AUTO DIFF. * Electronic signature of Yulisa Hull MD on 02/01/2025 at 04:12 PM EDT Sign off status: Pending * Provider: Terese Hull M.D. Date: 01/28/2025 Generated for Belia bran/Yoly/eTransmitting on: 02/01/2025 04:13 PM EDT History and Physical Notes * HPI (History of Present Illness) Category Sub-Category Detail Notes Category Not es HPI Patient is here today for Pt her e for 6 mo f/u. Pt states she is doing well and does not have any concerns today. Pt states she does need rf on Xyzal Examination Category Sub-Category Detail Notes Category Not es General Examination HEENT: TM's normal Heart: RSR Lungs: clear to auscultatio n Extremities: no leg edema General Appearance: NAD
--- NOTE | 2025-02-01 16:13 | MM_ITS ---
PROCEDURE INFORMATION: Exam: MG Bilateral Screening 3D Mammography Exam date and time: 02/01/2025 4:17 PM Age: 54 years old Clinical indication: Screening examination TECHNIQUE: Imaging protocol: Bilateral Screening tomosynthesis and 2D mammography including computer-aided detection (CAD) when performed. COMPARISON: 1. MG MM DIG SCREENING MAMM BI W/CAD 08/03/2023 10:44 AM 2. MG MM DIG SCREENING MAMM BI W/CAD 06/24/2022 9:41 AM FINDINGS: MAMMOGRAPHY: Breast composition: The breasts are heterogeneously dense, which may obscure small masses. Mass: None. Architectural distortion: None. Calcifications: No suspicious calcifications. Asymmetric density: None. Skin thickening: None. Axillary adenopathy: None. IMPRESSION: No mammographic evidence of malignancy. Annual screening is recommended unless otherwise clinically indicated. ASSESSMENT: BI-RADS Category 1: Negative.
--- OUTSIDE RECORDS SUMMARY | 2025-02-01 16:13 | XMS_ITS | Patient Health Record ---
Author Organization [facility] Address [address] [place] [id number] Care Team Providers Care Quality Process Lead Name Role Phone Brandi Lowe Primary Care Provider [phone] Jonathon Hull Unavailable [phone] Allergies Allergen (clinical drug ingredient) Drug/Non Drug Allergy documented on EMR Reaction Allergy Type Onset Date Status sulfamethoxazole / trimethoprim Bactrim DS itching, rash Drug Allergy Active Iodine rash, burn Drug Allergy Active Steri-Strip Compound Benzoin itching Drug Allergy Active Results Component Value Reference Range Notes P-Vitamin D 25-Hydroxy Reviewed date:01/29/2025 09:40:33 AM Interpretation:Normal Performing Lab: Notes/Report: Test performed by [facility] [address] [place], [place] [address] [place] , [address], [place] [address] Bayron Dumont MD, Fixture Builder CLIA: [id number] Vitamin D 25-Hydroxy 92.4 30.0-100.0 ng/mL Interpretation of Vitamin D 25 OH: < 20 ng/mL - Deficiency 20 - 29 ng/mL - Insufficiency 30 - 100 ng/mL - Sufficiency > 100 ng/mL - Super-therapeutic- toxicity may occur above this level. Clinical correlation required. P-TSH Reviewed date:01/29/2025 09:40:33 AM Interpretation:Normal Performing Lab: Notes/Report: Test performed by [facility] [address] [place], [place] [address] [place] , [address], [place] [address] Bayron Dumont MD, Fixture Builder CLIA: [id number] TSH 2.00 0.43-5.25 mU/L P-Lipid Panel Reviewed date:01/29/2025 09:40:32 AM Interpretation:Chol 265, Trigs 215, Non-HDL 197, LDL 154 Performing Lab: Notes/Report: Test performed by [facility] [address] [place] [address] [address], [place] [address] Bayron Dumont MD, Fixture Builder CLIA: [id number] Cholesterol 265 <200 mg/dL Triglycerides 215 <150 [...] Results: 154 Units: mg/dL % Change: +3% P-T4 Free (thyroxine) Reviewed date:01/29/2025 09:40:32 AM Interpretation:Normal Performing Lab: Notes/Report: Test performed by [email or web address] [address] , [place] [address] Bayron Dumont MD, Fixture Builder CLIA: [id number] Thyroxine Free (free T4) 1.03 0.86-1.76 ng/dL P-Comprehensive Metabolic Pa lucero (CMP) Reviewed date:01/29/2025 09:40:32 AM Interpretation:Normal Performing Lab: Notes/Report: Test performed by [facility] [address] [place] [address] , [address], [place] [address] Bayron Dumont MD, Fixture Builder CLIA: [id number] Sodium 141 135-145 mmol/L Potassium 4.7 3.5-5.3 [...] 0.5 <0.2-1.2 mg/dL A/G Ratio 1.4 1.1-2.5 CBC Venipuncture (in house) Reviewed date:01/29/2025 09:40:33 [...] 400 P-Comprehensive Metabolic Pa lucero (CMP) Reviewed date:02/13/2024 09:36:14 AM Interpretation: Normal Performing Lab: Notes/Report: Test performed by [facility] [address] [place] [address] , [address], [place] [address] Bayron Dumont MD, Fixture Builder CLIA: [id number] Sodium 138 135-145 mmol/L Potassium 4.1 3.5-5.3 [...] 149 Performing Lab: Notes/Report: Test performed by [facility] [address] [place] [address] , [address], [place] [address] Bayron Dumont MD, Fixture Builder CLIA: [id number] Cholesterol 262 <200 mg/dL Triglycerides 245 <150 [...] Normal Performing Lab: Notes/Report: Test performed by [facility], [address] , [facility], [place] [address] Bayron Dumont MD, Fixture Builder CLIA: [id number] Vitamin D 25-Hydroxy 94.9 30.0-100.0 ng/mL Interpretation of Vitamin D 25 OH: < 20 ng/mL - Deficiency 20 - 29 ng/mL - Insufficiency 30 - 100 ng/mL - Sufficiency > 100 ng/mL - Super-therapeutic- toxicity may occur above this level. Clinical correlation required. Medications Medication SIG (Take, Route, Frequency, Duration) Notes Start Date End Date Status Celecoxib 200 MG TAKE 1 CAPSULE BY [facility] EVERY DAY WITH FOOD FOR 90 DAYS; Duration: 90 Active B12 5000 MCG as directed Sublingual Active Vitamin D3 125 MCG (5000 UT) 1 capsule Orally Once a day Active Omeprazole 40 MG TAKE 1 CAPSULE BY [facility] EVERY DAY 30 MINUTES [...] Problem Status W/U Status Risk Notes Problem Vitamin D deficiency (06903247) Vitamin D deficiency (E55.9) Active confirmed Problem Hypoglycemia (014118605) Hypoglycemia (E16.2) Active confirmed Problem Mixed hyperlipidemia (505230647) Mixed hyperlipidemia (E78.2) Active confirmed Problem Primary insomnia (1721883) Primary insomnia (F51.01) Active confirmed Problem Gastroesophageal reflux disease without esophagitis (168833830) Gastroesophageal reflux disease without esophagitis (K21.9) Active confirmed Problem Menstrual disorder (398303026) Irregular menses (N92.6) Active confirmed Problem Osteoarthritis (764459831) Arthritis of great toe at metatarsophalangeal joint (M19.90) Active confirmed Problem Pure hyperglyceridemia (443040092) Acquired hypertriglyceridemia (E78.1) Active confirmed Problem Allergic rhinitis (90512271) Allergic rhinitis, unspecified seasonality, unspecified trigger (J30.9) Active confirmed Vital Signs Heart Rate 85 /min 01/28/2025 Blood pressure diastolic 74 mm Hg 01/28/2025 Height 65 in 01/28/2025 Blood pressure systolic 120 mm Hg 01/28/2025 Weight 169 lbs 01/28/2025 BMI 28.12 kg/m2 01/28/2025 Encounters Encounter Location Date Provider Diagnosis [facility] [address] [facility] [address] [place], [place] [id number] 02/10/2024 Jonathon Chatham Polyarthralgia M25.5 0 ; Dyspepsia R10.13 ; Primary insomnia F51.01 ; Vitamin D deficiency E55.9 and Well adult exam Z00.00 [facility] [address] [facility] [address] [place], [place] [id number] 08/13/2024 Jonathon Chatham Chronic heartburn R1 2 and Polyarthralgia M25.50 [facility] [address] [place], [place] [id number] 01/28/2025 Jonathon Chatham Mixed hyperlipidemia E78.2 ; Acquired hypertriglyceridemia E78.1 ; Vitamin D deficiency E55.9 ; Allergic rhinitis, unspecified seasonality, unspecified trigger J30.9 ; Gastroesophageal reflux disease without esophagitis K21.9 ; terminal superintendent use of drug Z79.899 ; Breast cancer screening by mammogram Z12.31 and Colon cancer screening Z12.11 [facility] [address] [place], [place] [id number] 02/13/2024 Jonathon Chatham [facility] [address] [facility] [address] [place], [place] [id number] 03/15/2024 [place] Jose Mynor Polyarthralgia M25.5 0 [facility] [address] [facility] [address] [place] [id number] 01/29/2025 Jonathonjose TinajeroChatham Assessments Encounter Date Diagnosis (ICD Code) Assessment Notes Treatment Notes Treatment Clinical Notes Section Notes 02/10/2024 Polyarthralgia (ICD- 10 - M25.50) Discussed using Duloxetine in the future if symptoms persist 02/10/2024 Dyspepsia (ICD-10 - R10.13) 03/15/2024 Polyarthralgia (ICD- 10 - M25.50) 08/13/2024 Polyarthralgia (ICD- 10 - M25.50) 08/13/2024 Chronic heartburn (ICD-10 - R12) 01/28/2025 Mixed hyperlipidemia (ICD-10 - E78.2) 01/28/2025 Acquired hypertriglyceridemia (ICD-10 - E78.1) 01/28/2025 Vitamin D deficiency (ICD-10 - E55.9) 02/10/2024 Primary insomnia (IC D-10 - F51.01) 02/10/2024 Vitamin D deficiency (ICD-10 - E55.9) 01/28/2025 Allergic rhinitis, unspecified seasonality, unspecified trigger (ICD-10 - J30.9) 01/28/2025 Gastroesophageal ref lux disease without esophagitis (ICD-10 - K21.9) 02/10/2024 Well adult exam (ICD -10 - Z00.00) 01/28/2025 shelter use of zehra g (ICD-10 - Z79.899) 01/28/2025 Breast cancer screen ing by mammogram (ICD-10 - Z12.31) 01/28/2025 Colon cancer screeni ng (ICD-10 - Z12.11) Plan Of Treatment Pending Test Test Name Order Date colonoscopy 01/28/2025 Mammogram 01/28/2025 Next Appt Details Provider Name:Jonathon Clay ry, 07/31/2025 09:45:00 AM, [address], [address], [place], [place], [id number], Insurance Providers Payer Name Payer Address Payer Phone Subscriber Number Group Number Insured Name Patient Relationship to Insured Coverage Start Date Coverage End Date [employer] [address] [place] [address] [id number] HELLEN MARCOS Self - patient is the insured Medical (General) History Medical History History ICD Code HPV 1987 osteoarthritis RAQUEL positive 2022, s/p Rheumatology eval uation allergic rhinitis Colon polyps plantar fasciitis, s/p podiatry evaluati on Vitamin D deficiency hyperlipidemia hypertriglyceridemia Surgical History Surgery Date(Month/Year) LT Big Toe Bone Spur btl Appendectomy Cholecystectomy Widom Teeth Extracted Cone Biopsy 1987 Tubal Ligation Ovary Removal 11/2007 RT L5, S1 01/19/2013 Ablasion 01/2014 LT Toe Joint Replacement 03/01/2016 Gum Graft 03/2017 colonoscopy 02/2022 Hospitalization History Reason Date(Month/Year) COVID Pneumonia- [facility] [place] 11/14/2020
== END 2025-02-01 23:59 | disposition home or self-care (01) ==
LOC: RAD 16:11
PROVIDERS: PCP Family Medicine; Visit Provider Family Medicine
DX: Z12.31 Encounter for screening mammogram for malignant neoplasm of breast (principal); R92.333 Mammographic heterogeneous density, bilateral breasts
CPT/HCPCS: 77063; 77067

== ENCOUNTER 2025-03-22 06:27 | Day surgery (SDC) | payer BC, SELFPAY ==
[2025-03-19 16:24] VITALS: BMI 26.6
--- NOTE | 2025-03-22 06:08 | EXP.GEN.HP ---
HPI HPI HPI: Patient is a 54-year-old female who presents for colonoscopy. She had colonoscopy on 03/09/[address] Luis which revealed fair bowel preparation, scattered sigmoid diverticulosis, lack of relaxation, and a proximal right colon polyp removed with cold biopsy forceps (pathology tubular adenoma). [facility] Disclaimer: The information contained in this section may have been updated after the patient was seen, as this information can be updated by other users. Medical History Skin cancer Tubular adenoma of colon Surgical History History of tubal ligation History of hysterectomy History of cholecystectomy History of appendectomy History of colonoscopy Family History Father Family history of diabetes mellitus type II Brother Lung cancer Mother Family history of Alzheimer's disease Family history of hypertension Social History Smoking Status: Never smoker alcohol intake: current alcohol intake frequency: holidays/special occasions only substance use type: denies use current occupational status: employed Travel in the last 8 weeks?: None household members: spouse housing: house current occupation: [employer] current occupational exposures/hazards: Yes caffeine: Yes Have you lived/traveled outside US in past 30 days?: No Contact w/someone who lives/traveled outside US past 30 days?: No Exposure to someone with infectious disease in past 14 days?: No Do you have a fever (greater than 100.4 F or 38 C)?: No Have you tested positive for COVID-19?: No Exposed to someone with COVID-19 in past 14 days?: No Do you have a sore throat?: No Do you have a cough?: No Do you have any weakness?: No Do you have any diarrhea?: No Are you experiencing any unusual bleeding?: No Do you have any muscle aches/pain?: No Do you have any abdominal pain?: No Are you experiencing loss of taste or smell?: No Other Medical History Have you received the Flu Vaccine for this season: No Have you received the Pneumonia Vaccine: No Meds Home Medications and Allergies Home Medications ?Medication ?Instructions ?Recorded ?Confirmed ?Type celecoxib 200 mg capsule 200 mg PO DAILY 02/21/24 03/19/25 History fluticasone propionate 50 1 spray intranasal DAILY 02/21/24 03/19/25 History mcg/actuation nasal spray,suspension levocetirizine 5 mg tablet 5 mg PO DAILY 02/21/24 03/19/25 History omeprazole 40 mg capsule,delayed 40 mg PO AM 02/21/24 03/19/25 History release estradiol 2 mg tablet See Rx Instructions .Route 09/03/24 03/19/25 Rx .COMPLEX #90 tabs cholecalciferol (vitamin D3) 10 10 mcg PO DAILY 03/19/25 03/19/25 History mcg (400 unit) capsule (Vitamin D3) collagen,hydrolysate 500 mg-biotin 1 cap PO DAILY 03/19/25 03/19/25 History 800 mcg-ascorbic acid 50 mg capsule (Collagen 1500 Plus C) multivitamin 1 cap PO DAILY 03/19/25 03/19/25 History vitamin B12 0.5 mg-folic acid 1 mg 1 tab PO DAILY 03/19/25 03/19/25 History tablet New Prescriptions to Start Prescriptions: Allergies Allergy/AdvReac Type Severity Reaction Status Date / Time adhesive Allergy Severe Blister Verified 03/22/25 06:41 sulfamethoxazole (From Allergy Mild Rash Verified 03/22/25 06:41 Bactrim) trimethoprim (From Bactrim) Allergy Mild Rash Verified 03/22/25 06:41 acetaminophen (From PERCOCET) Allergy Unknown MIGRANES Verified 03/22/25 06:41 iodine (IODINE) Allergy Unknown S-BLISTERING Verified 03/22/25 06:41 WELTS oxycodone (From PERCOCET) Allergy Unknown MIGRANES Verified 03/22/25 06:41 STERI STRIPS Allergy Severe BLISTERS Uncoded 02/22/23 09:38 SKIN Exam Data for Last 24 hours I & O for Last 24 hours: Intake & Output 03/19/25 03/20/25 03/21/25 03/22/25 11:59 11:59 11:59 11:59 Weight 160 lb Constitutional Constitutional: no acute distress *Routine HEENT Exam Head: Present normocephalic Eye: Present EOMI and PERRL ENT: Present mucous membranes moist *Routine Neck Exam Neck: Present supple; Absent lymphadenopathy *Routine Respiratory Exam Respiratory: Present CTA bilaterally *Routine Cardiovascular Exam Cardiovascular: Present RRR *Routine Abdominal Exam Abdominal: Present soft and normoactive bowel sounds; Absent tenderness *Routine Rectal Exam Rectal:: deferred *Routine Genitalia Exam Genitalia:: deferred *Routine Extremities Exam Extremities: Absent cyanosis, clubbing or edema *Routine Skin Exam Skin: Present warm; Absent rash *Routine Neurological Exam Neurological: Present alert and oriented X3 Assessment and Plan *Assessment and plan (1) Tubular adenoma of colon: Status: Acute Category: Medical Code(s): D12.6 - Benign neoplasm of colon, unspecified Plan Colonoscopy
[2025-03-22 06:43] VITALS: BP 123/78; PULSE 80; RESP 18; TEMP 36.1; O2SAT 97
[2025-03-22] MEDS: LACTATED RINGERS 1000ML 1,000 ML 50 ML IV (07:00)
--- NOTE | 2025-03-22 07:10 | P.PNANES_ITS ---
[facility] Disclaimer: The information contained in this section may have been updated after the patient was seen, as this information can be updated by other users. Medical History Skin cancer Tubular adenoma of colon Surgical History History of tubal ligation History of hysterectomy History of cholecystectomy History of appendectomy History of colonoscopy Family History Father Family history of diabetes mellitus type II Brother Lung cancer Mother Family history of Alzheimer's disease Family history of hypertension Social History Smoking Status: Never smoker alcohol intake: current alcohol intake frequency: holidays/special occasions only substance use type: denies use current occupational status: employed Travel in the last 8 weeks?: None household members: spouse housing: house current occupation: [employer] current occupational exposures/hazards: Yes caffeine: Yes Have you lived/traveled outside US in past 30 days?: No Contact w/someone who lives/traveled outside US past 30 days?: No Exposure to someone with infectious disease in past 14 days?: No Do you have a fever (greater than 100.4 F or 38 C)?: No Have you tested positive for COVID-19?: No Exposed to someone with COVID-19 in past 14 days?: No Do you have a sore throat?: No Do you have a cough?: No Do you have any weakness?: No Do you have any diarrhea?: No Are you experiencing any unusual bleeding?: No Do you have any muscle aches/pain?: No Do you have any abdominal pain?: No Are you experiencing loss of taste or smell?: No [facility] Anesthesia Checklist Patient Identification Patient Identification: Arm Band Structural Data Admitted From: Home Planned Operative Procedure/s: Colonoscopy Consent for Planned Operative Procedure(s) Verified: Yes Verified Documents: Surgical Consent and History and Physical NPO Status Verified Time NPO: 00:00 Additional verifications Anesthesia Reactions: No Hx Blood Transfusions: No Blood Transfusion Reaction: No Airway Assessment Mallampati Score:: Class II C-Spine Mobility Assessed: Yes TMJ Mobility Assessed: Yes Dentition: Good Dentition Neurological Assessment Level of Consciousness: Awake, Alert and Appropriate Anesthesia Plan Anesthesia Risk discussed: Yes Anesthesia Plan: Verified ASA Class: II Anesthesia Type: MAC
--- NOTE | 2025-03-22 07:37 | P.PCN_ITS ---
Procedure: Date: 03/22/25 Patient Date of :: 1970 Procedure Performed:: Total colonoscopy to terminal ileum with polypectomy using biopsy forceps . Indications:: Patient is a 54-year-old female who presents for colonoscopy. She had initial screening colonoscopy on 03/09/[address] Flood which revealed fair bowel preparation, scattered sigmoid diverticulosis, lack of relaxation, and a proximal right colon polyp removed with cold biopsy forceps (pathology tubular adenoma). . Performing Provider:: Michael Koch MD Referring Provider:: Jonathon Hull MD . Sedation:: MAC sedation . Procedure:: Patient history was obtained and appropriate physical examination was performed. Patient's medications and allergies were reviewed. Informed consent was obtained after explaining the benefits, alternatives, and risks of the procedure including, but not limited to, bleeding, perforation, missed lesions, and adverse reaction to anesthesia medications. Patient was transported to endoscopy procedure room. Patient was connected to monitoring devices. Throughout the procedure the patient's blood pressure, pulse, and oxygen saturations were monitored continuously. Patient identification and planned procedure were verified by the staff. Patient was positioned in lateral decubitus position. Digital anorectal exam was performed. Variable stiffness Olympus colonoscope was inserted and advan marie under direct visualization to the cecum. Adequacy of the colonic preparation was noted. The colonoscope was advanced a short distance into the terminal ileum. The colonoscope was then slowly withdrawn while carefully examining the color, texture, anatomy, and integrity of the mucosoa circumferentially. Within the rectum retroflexion was performed. Colonoscope was then withdrawn. Impression: Colonic preparation was good. In the ascending colon distal to the ileocecal valve there was an extremely tiny diminutive polyp removed with biopsy forceps in its entirety. There was some sigmoid diverticulosis. . Findings:: Diminutive ascending colon polyp Sigmoid diverticulosis . Recommendations:: Repeat colonoscopy pending pathology, likely 5 years Complications:: None immediately apparent Estimated blood obtained (mL): 0 Colonoscopy Component Colonoscopy Component Was a colonoscopy performed during today's procedure?: Yes Recommended follow up colonoscopy of at least 10 years?: No If no, follow up colonoscopy recommended in ___ years?: 5 Reason for not recommending >/= 10 yr follow-up interval?: See above
[2025-03-22 07:38] VITALS: BP 86/54; PULSE 74; RESP 17; TEMP 36.1; O2SAT 97
[2025-03-22 07:48] VITALS: BP 88/52; PULSE 53; RESP 17; TEMP 36.1; O2SAT 100
[2025-03-22 07:58] VITALS: BP 93/62; PULSE 63; RESP 18; TEMP 36.1; O2SAT 97
[2025-03-22 08:08] VITALS: BP 101/72; PULSE 65; RESP 18; TEMP 36.1; O2SAT 95
== END 2025-03-22 08:19 | disposition home or self-care (01) ==
PROVIDERS: PCP Family Medicine; Visit Provider Surgery
PROC: 0DJD8ZZ Inspection of Lower Intestinal Tract, Via Natural or Artificial Opening Endoscopic (ICD-10-PCS; CPT 45380; principal; 2025-03-22 07:30)
DX: D12.2 Benign neoplasm of ascending colon (principal); K57.30 Diverticulosis of large intestine without perforation or abscess without bleeding; Z91.048 Other nonmedicinal substance allergy status; Z88.2 Allergy status to sulfonamides; Z88.1 Allergy status to other antibiotic agents; Z88.5 Allergy status to narcotic agent; Z88.8 Allergy status to other drugs, medicaments and biological substances; Z88.6 Allergy status to analgesic agent
CPT/HCPCS: 45380; J2003; J2704; J7120